=== PATIENT | male | born 2000 | race Caucasian/White ===

== ENCOUNTER 2023-06-13 14:58 | Outpatient (AMB) | payer OTHER, SELFPAY ==
--- NOTE | 2023-06-13 15:13 | A.OFFPC_ITS ---
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 He reports this has been ongoing the past couple years. He has not had this worked up before. -He notes he tries to avoid triggers, oc casionally uses tums. He reports this does happen most days. Swollen testicles PMHx: L wrist fracture SurgHx: None FHx: Mom: Depression. Dad: Healthy. SocHx: Vapes EtOH. No drugs. HPI Comments History of Present Illness Details Documentation assistance for Obinna Hinojosa MD, was provided by Rajinder Brasher,? Club Attendant on 06/13/2023 3:36 PM EST. I, Dr. Hinojosa, have read, observed, and verified documentation. [facility] Medical History (Updated 06/13/23 @ 15:47 by Rajinder Brasher) Fx. left wrist Chest pain Surgical History (Updated 06/13/23 @ 15:22 by Lissy Rausch CMA) No pertinent past surgical history Family History (Updated 06/13/23 @ 15:24 by Lissy Rausch CMA) Mother Substance abuse in family Mental health disorder Brother Mental health disorder Sister Mental health disorder Social History (Updated 06/13/23 @ 15:26 by Lissy Rausch CMA) Household Members: Significant Other Both parents involved: No Caregiver staying overnight: No Housing: Apartment Are you a primary hospice patient care secretary to a significant other at home: No Do you presently have visiting nurse or other home services: No 75 years or older and lives alone: No Alcohol intake: current Comment: on occasion Patient Tobacco Use Status: Never used Tobacco e-Cigarette/Vaping Use: Currently Using Special anthony needs: No service: Yes Current occupational status: employed 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 1. Little interest or pleasure in doing things: not at all 2. Feeling down, depressed, or hopeless: not at all 3. Trouble falling or staying asleep, or sleeping too much: not at all 4. Feeling tired or having little energy: not at all 5. Poor appetite or overeating: not at all 6. Feeling bad about yourself - or that you are a failure or have let yourself or your family down: not at all 7. Trouble concentrating on things, such as reading the newspaper or watching television: not at all 8. Moving or speaking so slowly that other people could have noticed. Or the opposite - being so fidgety or restless that you have been moving around a lot more than usual: not at all 9. Thoughts that you would be better off or of hurting yourself in some way: not at all Total score: 0 Source: Developed by Drs. Danilo Esqueda, Macy Dave, Robinson Driver and colleagues, with an educational vin from [employer]. Thrive Questionnaire Date Thrive assessed: 06/13/23 I am a: Patient What is your living situation today?: I have a steady place to live Within the past 12 months, did the food you bought not last and you didn't have the money to get more?: Never true Within the past 12 months, did you worry whether your food would run out before you got money to buy more?: Never true Do you have trouble paying for medicines?: No Do you have trouble getting transportation to medical appointments?: No Do you have trouble paying your heating and electricity bill?: No Do you have trouble taking care of your child, family member or friend?: No Do you have trouble with day-to-day activities such as bathing, preparing meals, shopping, managing finances, etc.?: No Are you currently unemployed and looking for a job?: No Are you interested in more education?: No AUDIT C Alcohol Use Questionnaire (AUDIT-C) 1. How often do you have a drink containing alcohol?: Monthly or less 2. How many drinks containing alcohol do you have on a typical day when you are drinking?: 3 or 4 3. How often do you have six or more drinks on one occasion?: Never Total Score: 2 ABELARDO-7 AMB Questionnaire BAELARDO-7 Date ABELARDO - 7 assessed: 06/13/23 Feeling nervous, anxious, or on edge: 0 = Not at all Not being able to stop or control worryin = Not at all Worrying too much about different things: 0 = Not at all Trouble relaxin = Not at all Being so restless that it is hard to sit still: 0 = Not at all Becoming easily annoyed or irritable: 0 = Not at all Feeling afraid as if something awful might happen: 0 = Not at all Total ABELARDO-7 score (0-4 normal; 5-9 mild; 10-14 moderate; 15-21 severe): 0 Source: Developed by Drs. Danilo Esqueda, Macy Dave, Robinson Driver and colleagues, with an educational vin from [employer]. Review of Systems Const Denies chills, Denies fatigue, Denies fever(s), Denies headache(s) and Denies weakness ENT Denies dizziness and Denies headache(s) Card Denies chest pain, Denies lightheadedness, Denies dyspnea and Denies other (Palpitations) Resp Denies cough, Denies dyspnea, Denies wheezing and Denies other ( shortness of breath) Musc Denies numbness and Denies tingling Neuro Denies dizziness, Denies headache(s), Denies numbness, Denies tingling, Denies paresthesias and Denies weakness Psych Denies anxiety and Denies depression Endo Denies fatigue Aller/Immun Denies wheezing Physical exam (Primary Care) BMI result Body Mass Index 20.6 Tobacco/Smoking Status: Tobacco use Status Tobacco use date assessed 06/13/23 06/13/23 15:21 Patient Tobacco Use Status Never used Tobacco 06/13/23 15:26 e-Cigarette/Vaping Use Currently Using 06/13/23 15:26 PHQ-9: PHQ-9 Score PHQ-9: Total score 0 06/13/23 15:27 Const General: no acute distress and well developed Nutritional Appearance: well nourished Orientation/consciousness: patient oriented x3 [facility] Head: Yes normocephalic and Yes atraumatic Eyes General: appearance normal, both eyes and all related structures Pupils: Equal, round and reactive pupils present EOM: EOMs intact bilaterally Resp Effort & Inspection: normal respiratory effort Auscultation: clear to auscultation bilaterally Cardio Rate: regular rate Rhythm: regular rhythm Heart sounds: S1 normal heart sound present, S2 normal heart sound present, no gallops, no murmurs and no rubs Neuro General: patient oriented x3 and gait normal Cranial nerves: Yes Equal, round and reactive pupils present Psych Affect: normal affect Office Procedures Flu Questionnaire Does the patient have a severe egg allergy?: No Does the patient have severe life threatening allergies?: No Does the patient have a fever or illness today?: No Has the patient ever had Guillain-Madison Syndrome?: No Has the patient ever had any past reaction to a flu shot?: No Immunizations flu vacc [id number] 6mos up(PF) 60 mcg(15 mcgx4)/0.5 mL IM syringe Performing Provider: Obinna Hinojosa MD Performing [facility] Documented (not given) by: Lissy Rausch TELEPHONE SEX WORKER on 06/13/23 15:36 Reason Not Given: Not Given Assessment and Plan Assessment & Plan (1) Acid reflux: Code(s): K21.9 - Gastro-esophageal reflux disease without esophagitis Plan: Acid?reflux?and?heartburn?with?symptoms?almost?daily Not?obese,?watch?his?trigger?foods,?no?anxiety. Check?H?pylori?stool?antigen?test Start?omeprazole (2) Swollen testicle: Code(s): N50.89 - Other specified disorders of the male genital organs Plan: Left?testicular discomfort/swelling?and?transient?mass?which?has?resolved. Sexually?active?in?a?monogamous?relationship No?discharge?and?no?dysuria. Mild?prominence?of?left?spermatic?cord Will?check?GC?and?chlamydia?as?well?as?other?STD?test. Check?scrotal?ultrasound Advised?good?supportive?garments?but?keep?cool May?need?referral?to?urology (3) Screening for STD (sexually transmitted disease): Code(s): Z11.3 - Encounter for screening for infections with a predominantly sexual mode of transmission Plan: Check?lab (4) Laboratory exam ordered as part of routine general medical examination: Code(s): Z00.00 - Encounter for general adult medical examination without abnormal findings Plan: Check?labs Orders: Orders Influenza [id number] Immunization Today Z23 - Encounter for immunization Lipid Panel Today Z00.00 - Encounter for general adult medical examination without abnormal findings Microalbumin, Random (w Creat) Today I10 - Essential (primary) hypertension UA and rflx microscopic Today Z00.00 - Encounter for general adult medical examination without abnormal findings CT NG by PCR Today Z11.3 - Encounter for screening for infections with a predominantly sexual mode of transmission Comprehensive [place]. Panel Fast Today Z00.00 - Encounter for general adult medical examination without abnormal findings TSH reflex Free T4 Today Z00.00 - Encounter for general adult medical examination without abnormal findings HIV Ab/Ag Today Z11.3 - Encounter for screening for infections with a predominantly sexual mode of transmission Hepatitis B,C Profile Today Z11.3 - Encounter for screening for infections with a predominantly sexual mode of transmission Syphilis Screen Today Z11.3 - Encounter for screening for infections with a predominantly sexual mode of transmission US scrotum Today N50.89 - Other specified disorders of the male genital organs H pylori Ag Stool Today K21.9 - Gastro-esophageal reflux disease without esophagitis Coding Level of Care Code New Pt Level 4 (56546) Diagnoses Acid reflux K21.9 Swollen testicle N50.89 Screening for STD (sexually transmitted disease) Z11.3 Laboratory exam ordered as part of routine general medical examination Z00.00
[2023-06-13 15:14] VITALS: BP 118/62; PULSE 108; O2SAT 96; BMI 20.6
== END 2023-06-13 15:53 | disposition home or self-care (01) ==
PROVIDERS: PCP Family Medicine; Visit Provider Family Medicine
DX: K21.9 Gastro-esophageal reflux disease without esophagitis (principal); N50.89 Other specified disorders of the male genital organs; Z11.3 Encounter for screening for infections with a predominantly sexual mode of transmission
CPT/HCPCS: 99204

== ENCOUNTER 2023-07-05 16:19 | Outpatient (REF) | payer OTHER, SELFPAY ==
--- NOTE | ~2023-07-05 | US_ITS ---
EXAMINATION: US SCROTUM CLINICAL INFORMATION: Other specified disorders of the male genital organs. COMPARISON: None available. TECHNIQUE: A sonogram of the scrotum was performed assessing stiles-scale appearance and color Doppler flow. Spectral Doppler analysis of the arterial and venous flow were performed in the testes bilaterally. FINDINGS: RIGHT: Right testicle measures 5.7 x 2.1 x 3.4 cm, volume 22 mL. No focal testicular parenchymal lesions are visualized. Spectral Doppler analysis of the arterial and venous flow is normal in the right testis. Right epididymal head is normal in size. No right hydrocele or varicocele is seen. Right epididymal Doppler flow is normal. LEFT: Left testicle measures 5.4 x 2.5 x 3.3 cm, volume 23 mL. No focal testicular parenchymal lesions are visualized. Spectral Doppler analysis of the arterial and venous flow is normal in the left testis. Left epididymal head is normal in size. No left hydrocele or varicocele is seen. Left epididymal Doppler flow is normal. US/US scrotum IMPRESSION: Normal scrotal ultrasound.
== END 2023-07-05 16:20 | disposition home or self-care (01) ==
LOC: HO.US 16:19
PROVIDERS: PCP Family Medicine; Visit Provider Family Medicine
DX: N50.89 Other specified disorders of the male genital organs (principal)
CPT/HCPCS: 76870

== ENCOUNTER 2023-08-15 08:25 | Outpatient (REF) | payer OTHER, SELFPAY ==
[2023-08-15 11:21] LABS: Appearance Urine Clear; Color Urine Yellow; Glucose Urine UA Negative (Negative); Leukocyte Esterase Urine Negative (Negative); Nitrite Urine Negative (Negative); Urine Blood Negative (Negative); Urine Ketones Negative (Negative); Urine Protein Negative (Neg-Trace)
[2023-08-15 11:36] LABS: Alanine Aminotransferase 14 U/L (0-40); Albumin Level 4.6 g/dL (3.5-5.0); Alkaline Phosphatase 61 U/L (39-117); Anion Gap 10 (12-20); Aspartate Amino Transferase 16 U/L (5-37); Bilirubin Total 0.6 mg/dL (0.0-1.0); Blood Urea Nitrogen 13 mg/dL (9-16); Calcium 9.4 mg/dL (8.4-10.2); Carbon Dioxide 29 mmol/L (22-29); Chloride 104 mmol/L (96-108); Cholesterol 174 mg/dL (<200); Estimated Glomerular Filt Rate > 60; Glucose Fasting 95 mg/dL (60-99); HDL Cholesterol 52 mg/dL (>40); LDL Cholesterol Calculated 104 mg/dL (<100); Potassium 3.8 mmol/L (3.3-5.1); Sodium 139 mmol/L (135-145); Total Protein 7.5 g/dL (6.5-8.0); Triglycerides 90 mg/dL (<150)
[2023-08-15 11:43] LABS: Syphilis Screen Nonreactive (Nonreactive)
[2023-08-15 11:46] LABS: HBS Num1 > 1000.00 mIU/mL (0-7.99); HBc Num1 0.11 S/CO (0.00-0.79); HBsAGNum1 0.52 S/CO (0.00-0.99); HIV AB/AG Nonreactive (Nonreactive); HIV Num 1 0.05 S/CO (0.00-0.99); Hepatitis B Core Antibody Nonreactive (Nonreactive); Hepatitis B Surface Antigen Negative (Negative); Microalbumin Urine < 5.0 mg/L; ~HepC Num1 0.07 S/CO (0.00-0.79); ~Hepatitis B Surface Antibody REACTIVE (Nonreactive); ~Hepatitis C Antibody Nonreactive (Nonreactive)
[2023-08-15 11:53] LABS: TSH reflex Free T4 2.14 uIU/mL (0.32-4.0)
== END 2023-08-15 08:26 | disposition home or self-care (01) ==
LOC: HO.WFDLDS 08:25
PROVIDERS: Visit Provider Family Medicine
DX: Z00.00 Encounter for general adult medical examination without abnormal findings (principal); I10 Essential (primary) hypertension; Z11.3 Encounter for screening for infections with a predominantly sexual mode of transmission
CPT/HCPCS: 36415; 80053; 80061; 81003; 82570; 84443; 86704; 86706; 86780; 86803; 87340; 87389

== ENCOUNTER 2023-09-07 15:50 | Outpatient (AMB) | payer OTHER, SELFPAY ==
--- NOTE | 2023-09-07 16:29 | A.OFFPC_ITS ---
Vital Signs 09/07/23 16:30 Height 5 ft 6.75 in Weight 135 lb BMI 21.3 BP 126/85 Blood Pressure Location Lt brachial Position Sitting Pulse 74 Pulse Source Pulse Oximeter Temp 98.9 F Temp Source Oral Pulse Oximetry (%) 98 Oxygen Delivery Method Room Air Intake Visit Reasons: Fatigue [phone] Intake Note: Patient is here with fatigue, feeling of tightness of shoulders, arm since yesterday, he states he had sweats last night, too. Patient states he called out of work today. Allergies No Known Allergies Allergy (Verified 06/13/23 15:18) Tobacco use date assessed: 06/13/23 HPI Fatigue [phone] HPI Details 22 y/o male presents today with complain ts of fatigue. Pt reports tightness of shoulders/arms since yesterday. He also reports sweats. [facility] Medical History (Updated 09/07/23 @ 17:16 by Rajinder Brasher) Fx. left wrist Chest pain Surgical History (Updated 06/13/23 @ 15:22 by Lissy Rausch CMA) No pertinent past surgical history Family History (Updated 06/13/23 @ 15:24 by Lissy Rausch CMA) Mother Substance abuse in family Mental health disorder Brother Mental health disorder Sister Mental health disorder Social History (Updated 06/13/23 @ 15:26 by Lissy Rausch CMA) Household Members: Significant Other Housing: Apartment Are you a primary animal care attendant to a significant other at home: No Do you presently have visiting nurse or other home services: No Alcohol intake: current Comment: on occasion Patient Tobacco Use Status: Never used Tobacco e-Cigarette/Vaping Use: Currently Using Special anthony needs: No service: Yes Current occupational status: employed 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 Danilo Esqueda, Macy Dave, Robinson Driver and colleagues, with an educational vin from [employer]. Review of Systems Const Reports fatigue, Denies headache(s) and Denies weakness ENT Denies dizziness and Denies headache(s) Card Denies chest pain, Denies lightheadedness, Denies dyspnea and Denies other (Palpitations) Resp Denies cough, Denies dyspnea, Denies wheezing and Denies other ( shortness of breath) Musc Denies numbness and Denies tingling Neuro Denies dizziness, Denies headache(s), Denies numbness, Denies tingling, Denies paresthesias and Denies weakness Psych Denies anxiety and Denies depression Endo Reports fatigue Aller/Immun Denies wheezing Physical exam (Primary Care) Vital Signs: Last Vital Signs Temp 98.9 F 09/07/23 16:30 Pulse 74 09/07/23 16:30 BP 126/85 09/07/23 16:30 Pulse Ox 98 09/07/23 16:30 Oxygen Delivery Method Room Air 09/07/23 16:30 BMI result Body Mass Index 21.3 Tobacco/Smoking Status: Tobacco use Status Tobacco use date assessed 06/13/23 09/07/23 16:38 Patient Tobacco Use Status Never used Tobacco 09/07/23 16:38 e-Cigarette/Vaping Use Currently Using 09/07/23 16:38 Thrive Assessment: Date of Thrive Assessment Date Thrive assessed 06/13/23 09/07/23 16:38 Const General: no acute distress and well developed Nutritional Appearance: well nourished Orientation/consciousness: patient oriented x3 [facility] Head: Yes normocephalic and Yes atraumatic Eyes General: appearance normal, both eyes and all related structures Pupils: Equal, round and reactive pupils present EOM: EOMs intact bilaterally Resp Effort & Inspection: normal respiratory effort Auscultation: clear to auscultation bilaterally Cardio Rate: regular rate and tachycardic Rhythm: regular rhythm Heart sounds: S1 normal heart sound present, S2 normal heart sound present, no gallops, no murmurs and no rubs Neuro General: patient oriented x3 and gait normal Cranial nerves: Yes Equal, round and reactive pupils present Psych Affect: normal affect Assessment and Plan Assessment & Plan (1) Viral illness: Code(s): B34.9 - Viral infection, unspecified Plan: Viral?illness There?is?no?antibiotic?medication ?for?viruses.??They?must?run?their?course.??Most?average?5-7?days?but?7-10?days? is?not?uncommon?and?up?to?14?days?is?still?possible.??A?cough?is?often?the?last? symptom?to?resolve?and?this?can?last?for?weeks?in?some?cases. Rest Hydrate?well?-??Drink?plenty?of?fluids.??Especially?water. Tylenol?or?ibuprofen?for?muscle?aches,?headache,?fever/discomfort Can?use?okbr-lml-tbmefvp?medications?for?cough?s uch?as?Delsym?or?DayQuil.??Prescription?cough?medicines?have?been?shown?to?be?no ?better. Send?nasal?swab?to?test?for?COVID/flu/RSV Will?give?him?a?note?to?be?out?until?Monday.??If?positive?for?the?a isabela?or?if?he?is?still not?feeling?well?we?can?extend?his?note. (2) Muscle fatigue: Code(s): M62.89 - Other specified disorders of muscle Plan: Hydrate?well Can?use?ibuprofen?and?Tylenol Rest Orders: Orders SARS-CoV2/FLU/RSV Today B34.9 - Viral infection, unspecified, Z20.822 - Contact with and (suspected) exposure to COVID-19 Coding Level of Care Code Est Pt Level 3 (05596) Diagnoses Viral illness B34.9 Muscle fatigue M62.89
[2023-09-07 16:30] VITALS: BP 126/85; PULSE 74; TEMP 37.2; O2SAT 98; BMI 21.3
== END 2023-09-07 17:00 ==
PROVIDERS: PCP Family Medicine; Visit Provider Family Medicine
DX: B34.9 Viral infection, unspecified (principal); M62.89 Other specified disorders of muscle
CPT/HCPCS: 99213

== ENCOUNTER 2023-09-07 17:24 | Outpatient (REF) | payer OTHER, SELFPAY ==
[2023-09-08 14:38] LABS: Influenza A PCR NEGATIVE (Negative); Influenza B PCR NEGATIVE (Negative); Resp Syncy Virus RNA Qual PCR NEGATIVE (Negative); SARS COV2 PCR INHOUSE NEGATIVE (Negative)
== END 2023-09-07 17:25 | disposition home or self-care (01) ==
LOC: HO.LAB 17:24
PROVIDERS: Visit Provider Family Medicine
DX: B34.9 Viral infection, unspecified (principal); Z20.822 Contact with and (suspected) exposure to COVID-19
CPT/HCPCS: 0241U

== ENCOUNTER 2023-09-19 11:45 | Outpatient (AMB) | payer OTHER, SELFPAY ==
[2023-09-19 12:09] VITALS: BP 116/70; PULSE 110; O2SAT 97; BMI 21.3
--- NOTE | 2023-09-19 12:09 | MHC.PC.OV ---
Vital Signs 09/19/23 12:09 Height 5 ft 6.5 in Weight 134 lb 2 oz BMI 21.3 BP 116/70 Blood Pressure Location Lt brachial Position Sitting Pulse 110 H Pulse Source Pulse Oximeter Pulse Oximetry (%) 97 Oxygen Delivery Method Room Air Intake Visit Reasons: CPE Intake Note: Patient is here today for his physical and to follow up on labs. Allergies No Known Allergies Allergy (Verified 09/19/23 12:11) Tobacco use date assessed: 09/19/23 HPI CPE HPI Details 22 y/o male presents for a CPE with f/u labs and health maintenance. Labs were drawn 08/15/23. Reviewed labs with pt. Triglycerides 90. TC 174. LDL 104. HDL 52. Pt reports ongoing issues with GERD. PFSH Medical History Fx. left wrist Chest pain Surgical History No pertinent past surgical history Family History Mother Substance abuse in family Mental health disorder Brother Mental health disorder Sister Mental health disorder Social History Household Members: Significant Other Both parents involved: No Caregiver staying overnight: No Housing: Apartment Are you a primary managed care provider to a significant other at home: No Do you presently have visiting nurse or other home services: No 75 years or older and lives alone: No Alcohol intake: current Comment: on occasion Patient Tobacco Use Status: Never used Tobacco e-Cigarette/Vaping Use: Currently Using Special anthony needs: No service: Yes Current occupational status: employed 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 Danilo Esqueda, Macy Dave, Robinson Driver and colleagues, with an educational vin from [employer]. Review of Systems Const Denies chills, Denies fatigue, Denies fever(s), Denies headache(s) and Denies weakness Eyes Denies change in vision ENT Denies dizziness, Denies headache(s), Denies hearing loss, Denies nasal congestion, Denies sinus pain, Denies sinus pressure and Denies sore throat Card Denies chest pain, Denies lightheadedness, Denies dyspnea and Denies other (palpitations) Resp Denies cough, Denies dyspnea and Denies wheezing GI Denies abdominal pain, Denies melena, Denies hematochezia, Denies change in bowel habits, Denies dyspepsia and Denies nausea Denies hematuria and Denies dysuria Musc Denies abnormal gait, Denies myalgias, Denies arthralgias, Denies numbness and Denies tingling Skin/Breast Denies rash, Denies unusual bruising and Denies wounds Neuro Denies abnormal gait, Denies dizziness, Denies headache(s), Denies memory loss, Denies numbness, Denies Sensory deficit (Neuro), Denies tingling and Denies weakness Psych Denies anxiety, Denies depression and Denies memory loss Endo Denies cold intolerance, Denies fatigue, Denies heat intolerance, Denies polydipsia and Denies polyuria Prudencio/Lymph Denies easy bleeding and Denies easy bruising Aller/Immun Denies wheezing Physical exam (Primary Care) Vital Signs: Last Vital Signs Pulse 110 H 09/19/23 12:09 BP 116/70 09/19/23 12:09 Pulse Ox 97 09/19/23 12:09 Oxygen Delivery Method Room Air 09/19/23 12:09 BMI result Body Mass Index 21.3 Tobacco/Smoking Status: Tobacco use Status Tobacco use date assessed 09/19/23 09/19/23 12:14 Patient Tobacco Use Status Never used Tobacco 09/19/23 12:10 e-Cigarette/Vaping Use Currently Using 09/19/23 12:10 Thrive Assessment: Date of Thrive Assessment Date Thrive assessed 06/13/23 09/19/23 12:10 Const General: no acute distress, well developed, alert and awake Nutritional Appearance: well nourished Orientation/consciousness: patient oriented x3 [facility] Head: Yes normocephalic and Yes atraumatic Ears: hearing grossly normal bilaterally and TM's normal bilaterally General nose exam: Normal external nose present and Normal nares present Mouth: Normal oral and palatal mucosa present and moist mucous membranes Teeth and gingiva: dentition normal Throat: Yes posterior oropharynx normal Eyes General: appearance normal, both eyes and all related structures Pupils: Equal, round and reactive pupils present and Pupil accommodation reflex normal EOM: EOMs intact bilaterally Neck Neck: Yes normal visual inspection, Yes no lymphadenopathy and Yes trachea midline Thyroid: Thyroid normal Carotids: no bruits Lymphatic: no lymphadenopathy noted Chest Chest palpation & inspection: normal inspection of the chest Resp Effort & Inspection: normal respiratory effort Auscultation: clear to auscultation bilaterally Cardio Rate: regular rate Rhythm: regular rhythm Heart sounds: S1 normal heart sound present, S2 normal heart sound present, no gallops, no murmurs and no rubs Bruits: no abdominal aortic bruits and no carotid bruits GI Palpation (GI): No Abdominal aortic bruit present, Soft to palpation, nontender, No hepatosplenomegaly present and No Rebound tenderness present Auscultation: normal bowel sounds General: Yes no CVA tenderness Back/Spine/Pelvis Back: no CVA tenderness Cervical Spine: cervical ROM normal and No Cervical spine tenderness Thoracic/Lumbar Spine: thoraco-lumbar ROM normal, No pain with thoraco-lumbar ROM, No thoracic spinal tenderness and No lumbar spinal tenderness Skin Lesions: no lesions Rashes: no rashes Trauma: no lacerations or abrasions Wounds: no wounds Nails: normal Neuro General: patient oriented x3 Cranial nerves: Yes Equal, round and reactive pupils present Cognition (Neuro): normal cognition Gait exam (Neuro): Normal gait present Motor exam (neuro): 5/5 motor strength present throughout Sensory Exam: No Sensory deficit (Neuro) Deep tendon reflexes (DTR's): Right patellar reflex intensity grade: 2+ and Left patellar reflex intensity grade: 2+ Extrem General: Yes normal to inspection and No edema Psych Appearance: grossly normal Affect: normal affect Attitude: cooperative Thought process: Normal thought process present Assessment and Plan Assessment & Plan (1) Adult general medical exam: Code(s): Z00.00 - Encounter for general adult medical examination without abnormal findings Plan: 22-year-old?male?presents?for?complete?physical?exam Encouraged?healthy?diet?with?active?lifestyle?and?plenty?of?exercise (2) Acid reflux: Code(s): K21.9 - Gastro-esophageal reflux disease without esophagitis Plan: Had?ordered?H?pylori?test?but?he?has?not?had?this?done?yet. He?will?trial?omeprazole?but?he?agrees?to?get?H?pylori?testing?done Will?follow-up?in?a?couple?of?months Medications: New omeprazole 20 mg PO DAILY 30 caps 3RF 30 days Coding Level of Care Code Est Pt Level 3 (14580) Est Pt Prev Care 18-39y(56709) Diagnoses Adult general medical exam Z00.00 Acid reflux K21.9
== END 2023-09-19 13:03 | disposition home or self-care (01) ==
PROVIDERS: PCP Family Medicine; Visit Provider Family Medicine
DX: Z00.00 Encounter for general adult medical examination without abnormal findings (principal); K21.9 Gastro-esophageal reflux disease without esophagitis
CPT/HCPCS: 99213; 99395

== ENCOUNTER 2024-01-15 10:19 | Outpatient (REF) | payer OTHER, SELFPAY | END 2024-01-15 10:20 | disposition home or self-care (01) | LOC: HO.LNP 10:19 | PROVIDERS: Visit Provider Family Medicine | DX: K21.9 Gastro-esophageal reflux disease without esophagitis (principal) | CPT/HCPCS: 87338 ==

== ENCOUNTER 2024-02-09 09:16 | Outpatient (AMB) | payer OTHER, SELFPAY ==
[2024-02-09 09:22] VITALS: BP 110/68; PULSE 83; O2SAT 99; BMI 19.0
--- NOTE | 2024-02-09 09:22 | MHC.PC.OV ---
Vital Signs 02/09/24 09:22 Height 5 ft 6.75 in Weight 120 lb 4 oz BMI 19.0 BP 110/68 Blood Pressure Location Rt brachial Position Sitting Pulse 83 Pulse Source Pulse Oximeter Pulse Oximetry (%) 99 Oxygen Delivery Method Room Air Intake Visit Reasons: f/u GERD Intake Note: Vinay is a 23 year old male who presents to the office today for a follow up for GERD. Pt states he thinks the medication is helping but states sometimes he feels like his heart is racing. Allergies No Known Allergies Allergy (Verified 02/09/24 09:22) Medication List - Last Reconciled 02/09/24 by Obinna Hinojosa MD pantoprazole 20 mg PO DAILY 30 days Tobacco use date assessed: 02/09/24 Dental Screening Dental Screen Date: 02/09/24 Did you have a dental visit in the last 12 months?: Yes Did you have a dental problem in the last 6 months where you did not have access to dental care?: No Was dental information given to patient?: Patient has dentist HPI f/u GERD HPI Details 23 y/o male presents to f/u GERD. He is on omeprazole 20mg - he notes this did help with the reflux but noted palpitations when taking it. Pt reports L-sided chest pain, some pain with exertion. [facility] Medical History Fx. left wrist Chest pain Surgical History No pertinent past surgical history Family History Mother Substance abuse in family Mental health disorder Brother Mental health disorder Sister Mental health disorder Social History Household Members: Significant Other Both parents involved: No Caregiver staying overnight: No Housing: Apartment Are you a primary healthcare translator to a significant other at home: No Do you presently have visiting nurse or other home services: No 75 years or older and lives alone: No Alcohol intake: current Comment: on occasion Patient Tobacco Use Status: Never used Tobacco e-Cigarette/Vaping Use: Currently Using Special anthony needs: No service: Yes Current occupational status: employed 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 1. Little interest or pleasure in doing things: not at all 2. Feeling down, depressed, or hopeless: not at all 3. Trouble falling or staying asleep, or sleeping too much: not at all 4. Feeling tired or having little energy: not at all 5. Poor appetite or overeating: not at all 6. Feeling bad about yourself - or that you are a failure or have let yourself or your family down: not at all 7. Trouble concentrating on things, such as reading the newspaper or watching television: not at all 8. Moving or speaking so slowly that other people could have noticed. Or the opposite - being so fidgety or restless that you have been moving around a lot more than usual: not at all 9. Thoughts that you would be better off or of hurting yourself in some way: not at all Total score: 0 Source: Developed by Drs. Danilo Esqueda, Macy Dave, Robinson Driver and colleagues, with an educational vin from [employer]. Thrive Questionnaire Date Thrive assessed: 02/09/24 I am a: Patient What is your living situation today?: I have a steady place to live Within the past 12 months, did the food you bought not last and you didn't have the money to get more?: Never true Within the past 12 months, did you worry whether your food would run out before you got money to buy more?: Never true Do you have trouble paying for medicines?: No Do you have trouble getting transportation to medical appointments?: No Do you have trouble paying your heating and electricity bill?: No Do you have trouble taking care of your child, family member or friend?: No Do you have trouble with day-to-day activities such as bathing, preparing meals, shopping, managing finances, etc.?: No Are you currently unemployed and looking for a job?: No Are you interested in more education?: No THRIVE Score: 0 AUDIT C Alcohol Use Questionnaire (AUDIT-C) 1. How often do you have a drink containing alcohol?: Monthly or less 2. How many drinks containing alcohol do you have on a typical day when you are drinking?: 3 or 4 3. How often do you have six or more drinks on one occasion?: Never Total Score: 2 ABELARDO-7 AMB Questionnaire ABELARDO-7 Date ABELARDO - 7 assessed: 02/09/24 Feeling nervous, anxious, or on edge: 0 = Not at all Not being able to stop or control worryin = Not at all Worrying too much about different things: 0 = Not at all Trouble relaxin = Not at all Being so restless that it is hard to sit still: 0 = Not at all Becoming easily annoyed or irritable: 0 = Not at all Feeling afraid as if something awful might happen: 0 = Not at all Total ABELARDO-7 score (0-4 normal; 5-9 mild; 10-14 moderate; 15-21 severe): 0 Source: Developed by Drs. Danilo Esqueda, Macy Dave, Robinson Driver and colleagues, with an educational vin from [employer]. Review of Systems Const Denies chills, Denies fatigue, Denies fever(s), Denies headache(s) and Denies weakness ENT Denies dizziness and Denies headache(s) Card Denies dyspnea Resp Denies cough, Denies dyspnea, Denies wheezing and Denies other (shortness of breath) Musc Denies numbness and Denies tingling Neuro Denies dizziness, Denies headache(s), Denies numbness, Denies tingling and Denies weakness Psych Denies anxiety and Denies depression Endo Denies fatigue Aller/Immun Denies wheezing Physical exam (Primary Care) Vital Signs: Last Vital Signs Pulse 83 02/09/24 09:22 BP 110/68 02/09/24 09:22 Pulse Ox 99 02/09/24 09:22 Oxygen Delivery Method Room Air 02/09/24 09:22 BMI result Body Mass Index 19.0 Tobacco/Smoking Status: Tobacco use Status Tobacco use date assessed 02/09/24 02/09/24 09:24 Patient Tobacco Use Status Never used Tobacco 02/09/24 09:24 e-Cigarette/Vaping Use Currently Using 02/09/24 09:24 PHQ-9: PHQ-9 Score PHQ-9: Total score 0 02/09/24 10:21 Thrive Assessment: Date of Thrive Assessment Date Thrive assessed 02/09/24 02/09/24 09:36 Const General: well developed; No acute distress Nutritional Appearance: well nourished Orientation/consciousness: patient oriented x3 HENMT Head: Yes normocephalic and Yes atraumatic Eyes General: appearance normal, both eyes and all related structures Pupils: Equal, round and reactive pupils present EOM: EOMs intact bilaterally Resp Effort & Inspection: normal respiratory effort Neuro General: patient oriented x3 and gait normal Cranial nerves: Yes Equal, round and reactive pupils present Psych Affect: normal affect Assessment and Plan Assessment & Plan (1) Acid reflux: Code(s): K21.9 - Gastro-esophageal reflux disease without esophagitis Plan: Ongoing?acid?reflux?and?heartburn. H?pylori?test?was?negative He?has?had?adverse?effects?with?omeprazole. Will?switch?to?pantoprazole Still?has?ongoing?symptoms?when?he?stops?the?medication.??Will?refer?to?GI (2) Chest pain: Code(s): R07.9 - Chest pain, unspecified Plan: Left-sided?chest?pain?which?does?not?radiate. He?notes?that?it?does?change?with?exertion/activity EKG:??Mild?bradycardia, normal?axis,?normal?intervals,?no?hypertrophy,?no?ST-T-wave?changes Atypical?chest?pain.??No?intervention?required. Reassured?patient. Orders: Orders UA and rflx microscopic Today K21.9 - Gastro-esophageal reflux disease without esophagitis, Z00.00 - Encounter for general adult medical examination without abnormal findings AMB EKG-In Office Today R07.9 - Chest pain, unspecified Comprehensive [place]. Panel Fast Today K21.9 - Gastro-esophageal reflux disease without esophagitis, Z00.00 - Encounter for general adult medical examination without abnormal findings Lipid Panel Today K21.9 - Gastro-esophageal reflux disease without esophagitis, Z00.00 - Encounter for general adult medical examination without abnormal findings Microalbumin, Random (w Creat) Today I10 - Essential (primary) hypertension, K21.9 - Gastro-esophageal reflux disease without esophagitis TSH reflex Free T4 Today K21.9 - Gastro-esophageal reflux disease without esophagitis, Z00.00 - Encounter for general adult medical examination without abnormal findings Referrals Gastroenterology Referral K21.9 - Gastro-esophageal reflux disease without esophagitis Medications: New pantoprazole 20 mg PO DAILY 30 days 30 tabs 2RF K21.9 - Gastro-esophageal reflux disease without esophagitis Discontinued omeprazole Discontinued Reason: Doctor's Order 20 mg PO DAILY 30 days 30 caps 1RF Coding Level of Care Code Est Pt Level 3 (39385) Diagnoses Acid reflux K21.9 Chest pain R07.9
== END 2024-02-09 10:41 | disposition home or self-care (01) ==
PROVIDERS: PCP Family Medicine; Visit Provider Family Medicine
DX: K21.9 Gastro-esophageal reflux disease without esophagitis (principal); R07.9 Chest pain, unspecified
CPT/HCPCS: 99213

== ENCOUNTER 2024-05-17 13:54 | Outpatient (AMB) | payer OTHER, SELFPAY ==
[2024-05-17 14:03] VITALS: BP 141/85; PULSE 118; BMI 18.6
--- NOTE | 2024-05-17 14:03 | A.OFFVIS_ITS ---
Vital Signs 05/17/24 14:03 Height 5 ft 6.5 in Weight 116 lb 13.52 oz BMI 18.6 BP 141/85 H Blood Pressure Location Lt brachial Position Sitting Pulse 118 H Intake Visit Reasons: Gastroesophageal reflux disease (GERD) Intake Note: Vinay presents in the office as a new patient for GERD. CC: He states that when he eats certain food he will have GERD. He is dealing with weight loss at the moment. When he eats greasy foods he will have diarrhea. Driver/Refuse Collector Required: No Allergies No Known Allergies Allergy (Verified 05/17/24 14:04) HPI Comments Details: 23 y.o M who is here for L sided abd pain. Reports a year long symptomatology which he describes as increased belching with burning abd pain dayton with certain foods. Not assoc with nausea, vomiting. Sometimes get diarrhea after fatty food. Due to these sx has been avoiding fatty foods, and also avoiding etOH. With this has also noticed weight loss of around 10 lbs in this time. Used to vape which he has replaced nicotine pouches. No fam hx of IBD or CRC. Work up so far eith normal LFTs and neg H Pylori. Started on PPI but doesnt notice any remarkable response. [facility] Medical History (Updated 05/17/24 @ 15:36 by Sunshine Dinh MD) Fx. left wrist Chest pain Surgical History No pertinent past surgical history Family History Mother Substance abuse in family Mental health disorder Brother Mental health disorder Sister Mental health disorder Social History Household Members: Significant Other Both parents involved: No Caregiver staying overnight: No Housing: Apartment Are you a primary child caregiver private home to a significant other at home: No Do you presently have visiting nurse or other home services: No 75 years or older and lives alone: No Alcohol intake: current Comment: on occasion Patient Tobacco Use Status: Never used Tobacco e-Cigarette/Vaping Use: Currently Using Special anthony needs: No service: Yes Current occupational status: employed 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 [employer] Cognitive needs: No Hearing needs: No Vision needs: Yes (Patient wears both contacts and glasses.) Review of Systems Const All systems reviewed & are unremarkable except as noted in HPI and below Physical Exam Vital Signs: Last Vital Signs Pulse 118 H 05/17/24 14:03 BP 141/85 H 05/17/24 14:03 BMI result Body Mass Index 18.6 No apparent distress Nonicteric Abdomen soft, nondistended Alert and oriented x3, normal gait Assessment & Plan Assessment & Plan (1) Left upper quadrant abdominal pain: Code(s): R10.12 - Left upper quadrant pain Category: Medical (2) Intermittent diarrhea: Code(s): R19.7 - Diarrhea, unspecified Category: Medical (3) Weight loss: Code(s): R63.4 - Abnormal weight loss Category: Medical Plan DDx include GERD, gastritis, delayed gastric emptying, malabsorption, IBD, thyrotoxicosis. Suspect weight loss is 2ndary to dietary changes but advised pt to keep a tally of caloric intake. Plan: - CBC, TSH, fecal calpro, stool fat and celiac serology - US Abd - UGIS - Close follow up in 3 weeks to discuss results and review indication of endoscopy Orders: Orders Complete Blood Count no Diff Today R10.12 - Left upper quadrant pain Transglutaminase IgA Today R10.12 - Left upper quadrant pain Immunoglobulin A Today R10.12 - Left upper quadrant pain US abdomen complete Today R10.12 - Left upper quadrant pain FL upper GI w Ba Swallow Today R10.12 - Left upper quadrant pain Fecal Fat Qualitative Today R10.12 - Left upper quadrant pain TSH reflex Free T4 Today R10.12 - Left upper quadrant pain Calprotectin, Fecal Today R10.12 - Left upper quadrant pain Coding Level of Care Code New Pt Level 4 (84391) Complex EM visit Add On G2211 Diagnoses Left upper quadrant abdominal pain R10.12 Intermittent diarrhea R19.7 Weight loss R63.4
== END 2024-05-17 14:41 | disposition home or self-care (01) ==
LOC: HO.HGI 13:55
PROVIDERS: PCP Family Medicine; Visit Provider Internal Medicine
DX: R10.12 Left upper quadrant pain (principal); R19.7 Diarrhea, unspecified; R63.4 Abnormal weight loss
CPT/HCPCS: 99204; G2211

== ENCOUNTER → 2024-05-17 13:54 | Outpatient (BNVA) | payer OTHER, SELFPAY | PROVIDERS: PCP Family Medicine; Visit Provider Internal Medicine | DX: R63.4 Abnormal weight loss (principal); K21.9 Gastro-esophageal reflux disease without esophagitis; R10.12 Left upper quadrant pain; R19.7 Diarrhea, unspecified | CPT/HCPCS: 99202 ==

== ENCOUNTER 2024-05-24 07:47 | Outpatient (REF) | payer OTHER, SELFPAY ==
[2024-05-24 11:49] LABS: Hematocrit 45.7 % (42.0-52.0); Hemoglobin 15.4 g/dl (14.0-18.0); Mean Corpuscular HGB Conc 33.7 g/dl (31.0-36.0); Mean Corpuscular Hemoglobin 30.7 pg (27.0-33.0); Mean Corpuscular Volume 91.2 fL (80.0-98.0); Mean Platelet Volume 9.4 fL (9.4-12.4); Platelet Count 237 X10*3/uL (160-400); Red Blood Count 5.01 X10*6/uL (4.60-5.80); Red Cell Distribution Width 11.7 % (11.0-16.0); White Blood Count 4.9 X10*3/uL (4.8-10.8)
[2024-05-24 12:28] LABS: TSH reflex Free T4 1.13 uIU/mL (0.32-4.0)
[2024-05-27 08:03] LABS: Immunoglobulin A 188 mg/dL (47-310)
[2024-05-27 17:23] LABS: Transglutaminase IgA <1.0 U/mL
[2024-05-29 17:04] LABS: Fecal Fat Qualitative Normal (Normal)
[2024-06-01 03:19] LABS: Calprotectin, Fecal 43 mcg/g
== END 2024-05-24 07:48 | disposition home or self-care (01) ==
LOC: HO.WFDLDS 07:47
PROVIDERS: Visit Provider Internal Medicine
DX: R10.12 Left upper quadrant pain (principal)
CPT/HCPCS: 36415; 82705; 82784; 83993; 84443; 85027; 86364

== ENCOUNTER 2024-06-04 08:51 | Outpatient (REF) | payer OTHER, SELFPAY | END 2024-06-04 08:52 | disposition home or self-care (01) | LOC: HO.US 08:51 | PROVIDERS: PCP Family Medicine; Visit Provider Internal Medicine | DX: R10.12 Left upper quadrant pain (principal) | CPT/HCPCS: 76700 ==

== ENCOUNTER 2024-06-07 11:20 | Outpatient (AMB) | payer OTHER, SELFPAY ==
--- NOTE | 2024-06-07 11:20 | MHC.OFFVIS ---
Intake Visit Reasons: 3 week FUV discuss lab results Intake Note: Vinay presents as a telehealth today to go over results to lab work - he is not hazving any concerns at this time. Allergies No Known Allergies Allergy (Verified 05/17/24 14:04) HPI Comments Details: 23 y.o M who is here for L sided abd pain. Reports a year long symptomatology which he describes as increased belching with burning abd pain dayton with certain foods. Not assoc with nausea, vomiting. Sometimes get diarrhea after fatty food. Due to these sx has been avoiding fatty foods, and also avoiding etOH. With this has also noticed weight loss of around 10 lbs in this time. Used to vape which he has replaced nicotine pouches. No fam hx of IBD or CRC. Work up so far eith normal LFTs and neg H Pylori. Started on PPI but doesnt notice any remarkable response. 06/07/24: Following up as a video visit. Reports feeling much better. Reports quitting nicotine pouches and since then has been eating better, no further burning abd pain and/or bloating. Has put on a couple of pounds since he was last seen. Of note - pt mentions that her 29 y.o sister was diagnosed with multiple polyps and has been recommended to start early CRC screenign. [facility] Medical History Fx. left wrist Chest pain Surgical History No pertinent past surgical history Family History Mother Substance abuse in family Mental health disorder Brother Mental health disorder Sister Mental health disorder Social History Household Members: Significant Other Both parents involved: No Caregiver staying overnight: No Housing: Apartment Are you a primary anesthesiologist and critical care to a significant other at home: No Do you presently have visiting nurse or other home services: No 75 years or older and lives alone: No Alcohol intake: current Comment: on occasion Patient Tobacco Use Status: Never used Tobacco e-Cigarette/Vaping Use: Currently Using Special anthony needs: No service: Yes Current occupational status: employed 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 [employer] Cognitive needs: No Hearing needs: No Vision needs: Yes (Patient wears both contacts and glasses.) Review of Systems Const All systems reviewed & are unremarkable except as noted in HPI and below Physical Exam video visit Young male NAD SPeaking in complete sentences Telehealth Telehealth Telehealth Platform: [employer] Location of provider rendering services: practice address Location of patient: address on file Patient Identification confirmed using: Name, : Yes Telehealth method: video Patient verbally consented to treatment: Yes Patient verbally consented to billing insurance company: Yes Patient informed of any privacy concerns related to visit: Yes Minutes spent on Phone/Video with Pt.: 15 Assessment & Plan Assessment & Plan (1) Weight loss: Code(s): R63.4 - Abnormal weight loss Category: Medical (2) Intermittent diarrhea: Code(s): R19.7 - Diarrhea, unspecified Category: Medical (3) Left upper quadrant abdominal pain: Code(s): R10.12 - Left upper quadrant pain Category: Medical (4) Family history of colonic polyps: Code(s): Z83.719 - Family history of colon polyps, unspecified Category: Medical Plan Upper GI sx have completely resolved. Appetite back to normal. Will follow results of US Abd (done 06/04 report pending) and review resutls over the portal. In terms of hx of polyps in sibling (age 29), will book him for a colo for screening as high risk. PEG prep discussed. Instructions sent over the portal. Follow up after colo. Medications: New peg 3350-electrolytes 236-22.74-6.74 -5.86 gram (Golytely) as per split prep instructions, until fecal effluent is clear 240 mL PO Q10M 4,000 mL 0RF colonoscopy Coding Level of Care Code Tele Est Pt Level 4 (09583) Diagnoses Weight loss R63.4 Intermittent diarrhea R19.7 Left upper quadrant abdominal pain R10.12 Family history of colonic polyps Z83.719
== END 2024-06-07 12:36 | disposition home or self-care (01) ==
LOC: HO.HGI 11:20
PROVIDERS: PCP Family Medicine; Referring Provider Family Medicine; Visit Provider Internal Medicine
DX: R63.4 Abnormal weight loss (principal); R19.7 Diarrhea, unspecified; R10.12 Left upper quadrant pain; Z83.719 Family history of colon polyps, unspecified
CPT/HCPCS: 99214

== ENCOUNTER 2024-09-24 14:42 | Outpatient (AMB) | payer OTHER, SELFPAY ==
--- NOTE | 2024-09-24 14:56 | A.OFFPC_ITS ---
Vital Signs 09/24/24 15:01 Height 5 ft 6.5 in Weight 124 lb BMI 19.7 BP 134/70 Blood Pressure Location Lt brachial Position Sitting Respiration 12 Pulse 117 H Pulse Source Pulse Oximeter Pulse Oximetry (%) 97 Oxygen Delivery Method Room Air Intake Visit Reasons: CPE with f/u labs Dr. Little pt. 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 GI: Has history of dyspepsia, intermittent diarrhea. Saw GI-plans for colonoscopy given issues but more so family history of polyps. Finds it difficult to gain weight. No blood in the stool. Reports frequent urination. Feels frequent urge to go. Has family history of prostate cancer. says he believes he has had a hemorrhoid. He would like to see dermatology given multiple nevi ROS see HPI PHYSICAL EXAM: GENERAL: Alert and oriented x 3. NAD EYES: EOMI. Anicteric. HENT: Moist mucous membranes. No scleral icterus. No cervical lymphadenopathy. LUNGS: Clear to auscultation bilaterally. CARDIOVASCULAR: Regular rate and rhythm. No murmur. No JVD. ABDOMEN: Soft, non-tender +bs : Normal penis, testes, no external hemorroids. Prostate is smooth perhaps mild enlargement. non tender EXTREMITIES: No edema. Non-tender. SKIN: No rashes or lesions. Warm. NEUROLOGIC: No focal neurological deficits. CN II-XII grossly intact PSYCHIATRIC: Cooperative. Appropriate mood and affect [facility] Medical History Fx. left wrist Chest pain Surgical History No pertinent past surgical history Family History Mother Substance abuse in family Mental health disorder Brother Mental health disorder Sister Mental health disorder Social History Household Members: Significant Other Housing: Apartment Are you a primary body care manager to a significant other at home: No Do you presently have visiting nurse or other home services: No Alcohol intake: current Comment: on occasion Patient Tobacco Use Status: Never used Tobacco e-Cigarette/Vaping Use: Currently Using Special anthony needs: No service: Yes Current occupational status: employed 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 1. Little interest or pleasure in doing things: not at all 2. Feeling down, depressed, or hopeless: not at all 3. Trouble falling or staying asleep, or sleeping too much: not at all 4. Feeling tired or having little energy: not at all 5. Poor appetite or overeating: not at all 6. Feeling bad about yourself - or that you are a failure or have let yourself or your family down: not at all 7. Trouble concentrating on things, such as reading the newspaper or watching television: not at all 8. Moving or speaking so slowly that other people could have noticed. Or the opposite - being so fidgety or restless that you have been moving around a lot more than usual: not at all 9. Thoughts that you would be better off or of hurting yourself in some way: not at all Total score: 0 Depression Screening Interpretation: Negative Depression Screening Done: Yes 70847 - PHQ-9 Billing: Yes Source: Developed by Drs. Danilo Esqueda, Macy Dave, Robinson Driver and colleagues, with an educational vin from [employer]. Thrive Questionnaire Date Thrive assessed: 02/09/24 I am a: Patient What is your living situation today?: I have a steady place to live Within the past 12 months, did the food you bought not last and you didn't have the money to get more?: Never true Within the past 12 months, did you worry whether your food would run out before you got money to buy more?: Never true Do you have trouble paying for medicines?: No Do you have trouble getting transportation to medical appointments?: No Do you have trouble paying your heating and electricity bill?: No Do you have trouble taking care of your child, family member or friend?: No Do you have trouble with day-to-day activities such as bathing, preparing meals, shopping, managing finances, etc.?: No Are you currently unemployed and looking for a job?: No Are you interested in more education?: No Please select the resources that you would like help with: None Currently or been in a relationship where the following occur: No concerns reported THRIVE Score: 0 AUDIT C Alcohol Use Questionnaire (AUDIT-C) 1. How often do you have a drink containing alcohol?: Monthly or less 2. How many drinks containing alcohol do you have on a typical day when you are drinking?: 1 or 2 3. How often do you have six or more drinks on one occasion?: Never Total Score: 1 ABELARDO-7 AMB Questionnaire ABELARDO-7 Date ABELARDO - 7 assessed: 02/09/24 Feeling nervous, anxious, or on edge: 0 = Not at all Not being able to stop or control worryin = Not at all Worrying too much about different things: 0 = Not at all Trouble relaxin = Not at all Being so restless that it is hard to sit still: 0 = Not at all Becoming easily annoyed or irritable: 0 = Not at all Feeling afraid as if something awful might happen: 0 = Not at all Total ABELARDO-7 score (0-4 normal; 5-9 mild; 10-14 moderate; 15-21 severe): 0 Source: Developed by Drs. Danilo Esqueda, Macy Dave, Robinson Dirver and colleagues, with an educational vin from [employer]. Physical exam (Primary Care) Vital Signs: Last Vital Signs Pulse 117 H 09/24/24 15:01 Resp 12 09/24/24 15:01 BP 134/70 09/24/24 15:01 Pulse Ox 97 09/24/24 15:01 Oxygen Delivery Method Room Air 09/24/24 15:01 BMI result Body Mass Index 19.7 Tobacco/Smoking Status: Tobacco use Status Tobacco use date assessed 09/24/24 09/24/24 15:03 Patient Tobacco Use Status Never used Tobacco 09/24/24 15:01 e-Cigarette/Vaping Use Currently Using 09/24/24 15:01 PHQ-9: PHQ-9 Score PHQ-9: Total score 0 09/28/24 11:36 Depression Screening Interpretation: Negative Thrive Assessment: Date of Thrive Assessment Date Thrive assessed 02/09/24 09/24/24 14:57 Currently or been in a relationship where the following occur: No concerns reported Coding Level of Care Code Est Pt Prev Care 18-39y([id number]) Diagnoses Adult general medical exam Z00.00 Intermittent diarrhea R19.7 Polyuria R35.89 Additional Codes PHQ-9 - 36219 - PHQ-9 Billing: Yes ([id number]) Assessment & Plan Assessment & Plan (1) Adult general medical exam: Code(s): Z00.00 - Encounter for general adult medical examination without abnormal findings Category: Medical Plan: 23 y/o for cpe. chronic medical conditions reviewed. interval history reviewed. preventive measures for age discussed (2) Intermittent diarrhea: Code(s): R19.7 - Diarrhea, unspecified Category: Medical Plan: continue gi follow up. stool h pylori. (3) Polyuria: Code(s): R35.89 - Other polyuria Category: Medical Plan: UA, labs referral urology Orders: Orders Comprehensive Met. Panel 09/24/24 Z13.220 - Encounter for screening for lipoid disorders, Z13.228 - Encounter for screening for other metabolic disorders US abdomen limited 2 Months K82.4 - Cholesterolosis of gallbladder UA CC w/rflx Micro + Cult 09/24/24 R35.89 - Other polyuria Hemoglobin A1c 09/24/24 R35.89 - Other polyuria Lipid Panel 09/24/24 Z13.220 - Encounter for screening for lipoid disorders, Z13.228 - Encounter for screening for other metabolic disorders H pylori Ag Stool 09/24/24 K21.9 - Gastro-esophageal reflux disease without esophagitis Prostate Specific Antigen 09/24/24 R35.89 - Other polyuria Testosterone, Free/Total 09/24/24 R35.89 - Other polyuria Referrals Dermatology Referral D22.9 - Melanocytic nevi, unspecified Urology Referral N52.9 - Male erectile dysfunction, unspecified, R35.89 - Other polyuria
[2024-09-24 15:01] VITALS: BP 134/70; PULSE 117; RESP 12; O2SAT 97; BMI 19.7
--- OUTSIDE RECORDS SUMMARY | 2024-09-24 18:02 | XMS_ITS | Continuity of Care Document ---
Author Name [facility] Organization [facility] Care Team Providers Care System Sales Consultant Name Role Phone [facility] Unavailable Unavailable Allergies, Adverse Reactions, Alerts Combined list of allergies from Department of Defense and Veterans Affairs facilities. It does not include entries that were removed or entered in error. Substance Category Reaction Severity Reaction type Status Date Reported Comments Source No Known Allergies Drug allergy (disorder) active 11/05/2019 [place] [address] Immunizations Combined list of available immunizations from the Department of Defense and Veterans Affairs facilities. Immunization Series Date Given Administered By Site Reaction Lot Number CVX Code Drug Hospice Director Status Comments Source influenza virus vaccine, inactivated 2023 ENE Alves victor hugo, right (delt oid) [id number] ProDeafirus, A [employer] complet ed influenza virus vaccine, inactivat ed 05/22/24 Given 8203R-1 04 MDG Influenza, injectable, Madin Ayleen Canine Kidney, quadrivalent with preservative 3 2020 [id number] Seqirus (SEQ) comple t ed Influenza , injectabl e, Madin [place] Canine Kidney, quadrival ent with preservat garry DoD SARS-COV-2 (COVID-19) vaccine, mRNA, spike protein, LNP, preservative free, 100 mcg or 50 mcg dose 2 2020 [id number] UpTapa CaseRails, Inc. (MOD) complet ed SARS-COV- 2 (COVID-19 ) vaccine, mRNA, spike protein, LNP, preservat garry free, 100 mcg or 50 mcg dose DoD SARS-COV-2 (COVID-19) vaccine, mRNA, spike protein, LNP, preservative free, 100 mcg or 50 mcg dose 1 2020 [id number] 207 UpTapa CaseRails[employer] Inc. (MOD) complet ed SARS-COV- 2 (COVID-19 ) vaccine, mRNA, spike protein, LNP, preservat garry free, 100 mcg or 50 mcg dose DoD hepatitis A vaccine, adult dosage 3 2019 [id number] SmithKline (SKB) complet ed hepatitis A vaccine, adult dosage DoD Influenza, injectable, quadrivalent, preservative free 1 2019 [id number] 150 Seqirus (SEQ) complet ed Influenza , injectabl e, quadrival ent, preservat garry free DoD Hepatitis B vaccine (recombinant) , CpG adjuvanted 3 2019 [id number] 189 EME International. (DVX) complet ed Hepatitis B vaccine (recombin ant), CpG adjuvante d DoD hepatitis A-hepatitis B vaccine 2019 [id number] 104 GlaxoSmithKli ne complet ed hepatitis A-hepatit is B vaccine 12/19/19 Given Ambulat ory Pharmac y varicella virus vaccine 2019 [id number] 21 Merck & Company Inc complet ed varicella virus vaccine 12/19/19 Given Ambulat ory Pharmac y hepatitis A-hepatitis B vaccine 2019 zzLef t Arm [id number] 104 GlaxoSmithKli ne complet ed hepatitis A-hepatit is B vaccine 12/19/19 Given Ambulat ory Pharmac y varicella virus vaccine 2019 zzLef t Arm [id number] 21 Merck & Company Inc complet ed varicella virus vaccine 12/19/19 Given Ambulat ory Pharmac y varicella virus vaccine 2 2019 NAYAN CLEARY P [id number] 21 Merck (MSD) complet ed varicella virus vaccine DoD hepatitis A and hepatitis B vaccine 2 2019 TYRONE CLEARYA P [id number] 104 SmithKline (SKB) complet ed hepatitis A and hepatitis B vaccine DoD varicella virus vaccine 2019 [id number] 21 Merck & Company Inc complet ed varicella virus vaccine 11/12/19 Given Ambulat ory Pharmac y hepatitis A-hepatitis B vaccine 2019 [id number] 104 GlaxoSmithKli ne complet ed hepatitis A-hepatit is B vaccine 11/12/19 Given Ambulat ory Pharmac y hepatitis A-hepatitis B vaccine 2019 zzLef t Arm [id number] 104 GlaxoSmithKli ne complet ed hepatitis A-hepatit is B vaccine 11/12/19 Given Ambulat ory Pharmac y varicella virus vaccine 2019 zzLef t Arm [id number] 21 Merck & Company Inc complet ed varicella virus vaccine 11/12/19 Given Ambulat ory Pharmac y varicella virus vaccine 1 2019 DAVON MOE [id number] 21 Merck (MSD) complet ed varicella virus vaccine DoD hepatitis A and hepatitis B vaccine 1 2019 DAVON MOE [id number] 104 [employer] (SKB) complet ed hepatitis A and hepatitis B vaccine DoD measles virus vaccine 0 2019 05 () Not Given measles virus vaccine DoD rubella virus vaccine 0 2019 06 () Not Given rubella virus vaccine DoD mumps virus vaccine 0 2019 07 () Not Given mumps virus vaccine DoD adenovirus vaccine, live 2019 [id number] 8 143 Teva Pharmaceutica complet ed adenoviru s vaccine, live 10/31/19 Given Ambulat ory Pharmac y tetanus, diphtheria, acellular pertu is 2019 [id number] 115 Exo Protein BarsKli wa complet ed tetanus, diphtheri a, acellular pertussis 10/31/19 Given Ambulat ory Pharmac y meningococcal A,C,Y,W-135 (MCV4P) 2019 [id number] 114 sanofi pasteur complet ed meningoco ccal A,C,Y,W-1 35 (MCV4P) 10/31/19 Given Ambulat ory Pharmac y influenza, injectable, quadrivalent 2019 [id number] 913 158 Seqirus complet ed influenza , injectabl e, quadrival ent 10/31/19 Given Ambulat ory Pharmac y influenza, injectable, quadrivalent- pf 2019 [id number] 913 150 Seqirus complet ed influenza , injectabl e, quadrival ent-pf 10/31/19 Given Ambulat ory Pharmac y poliovirus vaccine, inactivated 2019 [id number] 10 sanofi pasteur complet ed polioviru s vaccine, inactivat ed 10/31/19 Given Ambulat ory Pharmac y meningococcal A,C,Y,W-135 (MCV4P) 2019 zzLef t Arm [id number] 114 sanofi pasteur complet ed meningoco ccal A,C,Y,W-1 35 (MCV4P) 10/31/19 Given Ambulat ory Pharmac y poliovirus vaccine, inactivated 2019 zzLef t Arm [id number] 10 sanofi pasteur complet ed polioviru s vaccine, inactivat ed 10/31/19 Given Ambulat ory Pharmac y influenza, injectable, quadrivalent 2019 zzLef t Arm [id number] 913 158 Seqirus complet ed influenza , injectabl e, quadrival ent 10/31/19 Given Ambulat ory Pharmac y adenovirus vaccine, live 2019 zzLef t Arm [id number] 8 143 Teva Pharmaceutica ls complet ed adenoviru s vaccine, live 10/31/19 Given Ambulat ory Pharmac y tetanus, diphtheria, acellular pertu is 2019 zzLef t Arm [id number] 115 [employer] wa complet ed tetanus, diphtheri a, acellular pertussis 10/31/19 Given Ambulat ory Pharmac y poliovirus vaccine, inactivated 1 2019 DAVON MOE [id number] 10 Sanofi Pasteur (PMC) complet ed polioviru s vaccine, inactivat ed DoD meningococcal polysaccharid e (groups A, C, Y and W-135) diphtheria toxoid conjugate vaccine (MCV4P) 1 2019 DAVON MOE [id number] 114 Sanofi Pasteur (PMC) complet ed meningoco ccal polysacch aride (groups A, C, Y and W-135) diphtheri a toxoid conjugate vaccine (MCV4P) DoD tetanus toxoid, reduced diphtheria toxoid, and acellular pertu is vaccine, adsorbed 1 2019 DAVON MOE [id number] 115 [facility] (SKB) complet ed tetanus toxoid, reduced diphtheri a toxoid, and acellular pertussis vaccine, adsorbed DoD Adenovirus, type 4 and type 7, live, oral 1 2019 DAVON MOE [id number] 8 143 [facility] (BRR) complet ed Adenoviru s, type 4 and type 7, live, oral DoD Influenza, injectable, quadrivalent, preservative free 1 2019 [id number] 913 150 Seqirus (SEQ) complet ed Influenza , injectabl e, quadrival ent, preservat garry free DoD influenza, injectable, quadrivalent, contains preservative 1 2019 DAVON MOE [id number] 913 158 Seqirus (SEQ) complet ed influenza , injectabl e, quadrival ent, contains preservat garry DoD Results Combined list of recent chemistry, hematology and other laboratory results from Department of Defense and Veterans Affairs, ranging from 15 months to all on record, depending upon the facility. Order Name Results Value Reference Range Date Interpretation Specimen Comments Source Infectiou s Disease HIV-1/O/2 Non-Reac tive 1 (09/29/23 11:17 AM) 09/28 N Interpretiv e Data: INTERPRETAT ION: This method is a screening procedure for the detection of HIV p24 Antigen and Antibodies to HIV-1, including Group O, and/or HIV-2. NON-REACTIV E: HIV-1 antigen and HIV-1 / HIV-2 antibodies were not detected. No laboratory evidence of HIV infection. A negative test result does not exclude the possibility of exposure to or infection with HIV. HIV antibodies and/or p24 antigen may be undetectabl e in some stages of the infection and in some clinical conditions. If acute HIV infection is suspected, consider submitting another specimen to a reference laboratory for HIV-1 RNA. SCREEN REACTIVE - CONFIRMATIO N TO FOLLOW: Possible presence of HIV-1antibo dies, HIV-2 antibodies and/or HIV-1 p24 antigen. Specimen will reflex to the confirmatio n testing that fulfills the Center for Disease Control and Prevention' s HIV diagnostic algorithm. Refer to [facility] Lab Guide for additional information : [email or web address]/ [email or web address] x Testing performed by [employer] marry solo. 5600A-U SAFS[facility] EPILAB Miscellan eous Sendouts Repository Sample Received (09/29/23 11:17 AM) 09/28 N 5600A-U SAFSAM EPILAB Encounters Combined list of: 1) Encounters from Department of Veterans Affairs facilities going backup to the last 18 months, not all VA inpatient encounters are included; 2) Encounters from the Department of Defense facilities going backup to 280 months. Location Location Details Encounter Type Encounter Number Reason For Visit Attending Provider ADM Date DC Date Status Disposition [place] [address](All ergy, [facility]) OUTPATIENT [id number] Notes Entered by: Kade MOE 31 Oct 2019 1420 ------- ------- ------- ------- -- tvc AARON BASSETT 10/30 [facility] [place] [address](A llergy, [facility]) [facility], [place] [address]([facility]) OUTPATIENT [id number] Notes Entered by: Eli SANTANA 04 Nov 2019 1301 ------- ------- ------- ------- -- Strep Prophyl axis JAMES SANTANA 11/03 Released w/o Limitations [facility] [place] [address]([facility] d) [facility], [place] [address](All ergy, [facility]) OUTPATIENT [id number] Notes Entered by: Kade MOE 12 Nov 2019 1135 ------- ------- ------- ------- -- tvc JAXON VERDUZCO 11/11 Released w/o Limitations [facility] [place] [address](A llergy, [facility]) [facility], [place] [address]([facility] BMT [facility]) OUTPATIENT [id number] BMT REED BRADLEY 11/13 Released w/o Limitations [facility] [place] [address](O ptometr y Clinic BMT [facility]) [facility], [place] [address](All ergy, [facility]) OUTPATIENT [id number] Notes Entered by: FRANKO YOUSIF MA 19 Dec 2019 1006 ------- ------- ------- ------- -- TVC AARON BASSETT 12/18 Released w/o Limitations [facility] [place] [address](A llergy, [facility]) [place] [address](AFN G [address]) OUTPATIENT [id number] Notes Entered by: MATTHEWBISHNUDEEPAKEDWIN YATES 04 Aug 2020 0818 ------- ------- ------- ------- -- CEASAR CASTRODEEPAK TRUDY 08/04 Released w/o Limitations [place] [address](A FNG [address]FM) [place] [address](AFN G [address]) OUTPATIENT [id number] Notes Entered by: LYNDON KWON 25 Sep 2020 1445 ------- ------- ------- ------- -- Annual Audiogr am MATTHEWDEEPAK TRUDY 09/25 Released w/o Limitations [place] [address](A FNG [address]FM) [place] [address](AFN G [address]) OUTPATIENT [id number] Notes Entered by: JENNIFER MCELROY 20 Sep 2021 0940 ------- ------- ------- ------- -- Annual Audiogr am / [email or web address] / PHAQ MATTHEWDEEPAK LOUIS TRUDY 09/20 Released w/o Limitations [facility] [place] [address](A FNG [address]FM) 8203R-104 G Between Visit [id number] 12/16 Discharge Disposition: Home or Self Care 8203R-1 04 ARCHIE 8203R-104 G Mass Vaccine [id number] 05/22 8203R-1 04 ARCHIE 8203R-104 G Between Visit [id number] 05/28 Discharge Disposition: Home or Self Care 8203R-1 04 G 8203R-104 G Between Visit [id number] 06/19 Discharge Disposition: Home or Self Care 8203R-1 04 MDG 8203R-104 MDG Preclinic [id number] 09/24 8203R-1 04 MDG Procedures Combined list of: 1) Procedures from Department of Veterans Affairs facilities going back up to thelast 18 months, not all VA non-surgical procedures are included; 2) All procedures from the Department of Defense facilities. Procedure Procedure Type Code Date Perfomer Comments Sourc e No data available for this section Ambulato ry Pharmacy PURE TONE AUDIOMETRY (THRESHOLD); AIR ONLY [facility] IMMUNIZATION ADMINISTRATION (INCLUDES PERCUTANEOUS, INTRADERMAL, SUBCUTANEOUS, OR INTRAMUSCULAR INJECTIONS); EACH ADDITIONAL VACCINE (SINGLE OR COMBINATION VACCINE/TOXOID) [facility] SCREENING TEST OF VISUAL ACUITY, QUANTITATIVE, BILATERAL DoD IMMUNIZATION ADMINISTRATION (INCLUDES PERCUTANEOUS, INTRADERMAL, SUBCUTANEOUS, OR INTRAMUSCULAR INJECTIONS); EACH ADDITIONAL VACCINE (SINGLE OR COMBINATION VACCINE/TOXOID) DoD THERAPEUTIC, PROPHYLACTIC, OR DIAGNOSTIC INJECTION (SPECIFY SUBSTANCE OR DRUG); SUBCUTANEOUS OR INTRAMUSCULAR DoD IMMUNIZATION ADMINISTRATION BY INTRANASAL OR ORAL ROUTE; 1 VACCINE (SINGLE OR COMBINATION VACCINE/TOXOID) [facility] Meningococcal Polysaccharide Diphtheria Toxoid Conjugate Vaccine Meningococcal Polysaccharide Diphtheria Toxoid Conjugate Vaccine 08422 DAVON MOE Meningococcal MCV4P (Menactra); Series #: 1; 0.5 mL; IM; Left Arm; g: OptoNovaofi Pasteur; Lot: [id number]; VIS given (Ginny: 02/28/2019). [facility] Vaccines Viral Polio, Inactivated Vaccines Viral Polio, Inactivated 01847 DAVON MOE IPV; Series #: 1; 0.5 mL; IM; Left Arm; Mfg: Sanofi Pasteur; Lot: [id number]; VIS given (Ginny: 05/15/19; 05/21/15 - Multiple). [facility] Tdap Vaccine Tdap Vaccine 42615 DAVON MOE Tdap; Series #: 1; 0.5 mL; IM; Left Arm; [facility]: [employer]; Lot: [id number]; VIS given (Ginny: 09/09/14). [facility] Vaccines Vaccines 87532 DAVON MOE Adenovirus Type 4 and 7; Series #: 1; 2 tablets; PO; Left Arm; Mfg: Helishopter; Lot: [id number]; VIS given (Ginny: 12/25/13). [facility] Influenza Split Virus Vaccine IM With Preservative Quadrivalent 0.50mL Dosage Influenza Split Virus Vaccine IM With Preservative Quadrivalent 0.50mL Dosage 94565 DAVON MOE Influenza, Inj., quad., contains preservative (Afluria); Series #: 1; 0.5 mL; IM; Left Arm; Mfg: Seqirus; Lot: [id number]; VIS given (Ginny: 02/28/2019). DoD Immunization Administration By Injection, One Vaccine Immunization Administration By Injection, One Vaccine [address] [facility] Immunization Administration By Injection, Each Additional Vaccine Immunization Administration By Injection, Each Additional Vaccine [address] [facility] Immunization Admin By Intranasal / Oral Route One Vaccine Immunization Admin By Intranasal / Oral Route One Vaccine 43131 DAVON MOE DoD Physician Supervised Injection Intramuscular Physician Supervised Injection Intramuscular [address] [facility] Vaccines Viral Varicella (Active) Vaccines Viral Varicella (Active) 50428 JEANNA MOEIsak PALMER Varicella; Series #: 1; 0.5 mL; SC; Left Arm; g: [employer]; Lot: [id number]; VIS given (Ginny: 02/28/2019). [facility] Hepatitis A And Hepatitis B (Intramuscular Use) Adult Dosage Hepatitis A And Hepatitis B (Intramuscular Use) Adult Dosage 56360 DAVON MOE SPENCER Hep A-Hep B (Twinrix); Series #: 1; 1.0 mL; IM; Left Arm; [facility]: Hi[employer]Lo Lodge; Lot: [id number]; VIS given (Ginny: 02/03/16 (hep A); 02/28/2019). [facility] Spectacles Services Fitting Monofocal Except For Aphakia Spectacles Services Fitting Monofocal Except For Aphakia [address] [facility] Screening Test Of Visual Acuity, Quantitative, Bilateral Screening Test Of Visual Acuity, Quantitative, Bilateral [address] [facility] Vaccines Viral Varicella (Active) Vaccines Viral Varicella (Active) 63921 GRANDBERRY, NAYAN P Varicella; Series #: 2; 0.5 mL; SC; Left Arm; Mfg: Merck; Lot: [id number]; VIS given (Ginny: 02/28/2019). [facility] Hepatitis A And Hepatitis B (Intramuscular Use) Adult Dosage Hepatitis A And Hepatitis B (Intramuscular Use) Adult Dosage 60757 NAYAN CLEARY Hep A-Hep B (Twinrix); Series #: 2; 1.0 mL; IM; Left Arm; Mfg: [employer] Lodge; Lot: [id number]; VIS given (Ginny: 02/03/16 (hep A); 02/28/2019). [facility] Threshold Audiogram (Pure Tone) Threshold Audiogram (Pure Tone) [address] [facility] Social History Combined list of available smoking, tobacco, and other social history from Department of Defense and Veterans Affairs facilities. Social History Type Response Date Comment [facility] e Sex Representation Male 04/05/2020 Unknow n Organization Sexual Orientation Ambula tory Pharmacy Gender identity Ambulator y Pharmacy This section is an empty soc ial history section. DoD Assessment and Plan Combined list of future care activities from Department of Defense and Veterans Affairs facilities (e.g., assessment and plan notes, appointments, orders, and referrals). Additional future care activities may be listed in the Plan of Care section. Result Assessment and Plan Date Source Assessment and Plan Future Appointments Appointment Date: 09/24/2024 09:40:00 AM Scheduled Provider: Location: [address] [place] [address] Appointment Type: ANNEMARIE FTR 09/24/2024 Ambulatory Pharmacy Functional Status Combined list of recent functional and cognitive assessments recorded at Department of Defense and Veterans Affairs ([place] Functional [place] Measurement (FIM) Scale: 1 = Total Assistance (Subject = 0% +), 2 = Maximal Assistance (Subject = 25% +), 3 = Moderate Assistance (Subject = 50% +), 4 = Minimal Assistance (Subject = 75% +), 5 = Supervision, 6 = Modified [place] (Device), 7 = Complete [place] (Timely, Safely). Assessment Date/Time Source Assessment Type Assessment Skill Assessment Score Assessment Details No data available for this section
== END 2024-09-24 15:47 | disposition home or self-care (01) ==
LOC: HO.HMCFM 14:42
PROVIDERS: PCP Family Medicine; Visit Provider Internal Medicine
DX: Z00.00 Encounter for general adult medical examination without abnormal findings (principal); R19.7 Diarrhea, unspecified; R35.89 Other polyuria

== ENCOUNTER → 2024-09-24 14:42 | Outpatient (BNVA) | payer OTHER, SELFPAY | PROVIDERS: PCP Family Medicine; Visit Provider Internal Medicine | DX: Z00.00 Encounter for general adult medical examination without abnormal findings (principal); R19.7 Diarrhea, unspecified; R35.89 Other polyuria | CPT/HCPCS: 96127 ==

== ENCOUNTER 2024-11-19 07:55 | Outpatient (AMB) | payer OTHER, SELFPAY ==
--- OUTSIDE RECORDS SUMMARY | 2024-11-19 07:59 | XMS_ITS | Continuity of Care Document ---
Author Name [facility] Organization [facility] Care Team Providers Care Sample Sawyer Name Role Phone [facility] Unavailable Unavailable Allergies, Adverse Reactions, Alerts Combined list of allergies from Department of Defense and Veterans Affairs facilities. It does not include entries that were removed or entered in error. Substance Category Reaction Severity Reaction type Status Date Reported Comments Source No Known Allergies Drug allergy (disorder) active 11/05/2019 [place] [address] Immunizations Combined list of available immunizations from the Department of Defense and Veterans Affairs facilities. Immunization Series Date Given Administered By Site Reaction Lot Number CVX Code Drug Tennis Instructor Status Comments Source influenza virus vaccine, inactivated 2023 ENE Alves victor hugo, right (delt oid) [id number] Innovasic Semiconductorirus, A Yeti Data complet ed influenza virus vaccine, inactivat ed 05/22/24 Given 8203R-1 04 MDG Influenza, injectable, Madin [place] Canine Kidney, quadrivalent with preservative 3 2020 [id number] Seqirus (SEQ) comple t ed Influenza , injectabl e, Madin Ayleen Canine Kidney, quadrival ent with preservat garry DoD SARS-COV-2 (COVID-19) vaccine, mRNA, spike protein, LNP, preservative free, 100 mcg or 50 mcg dose 2 2020 [id number] Seahorse Biosciencea Pepex Biomed[employer], Inc. (MOD) complet ed SARS-COV- 2 (COVID-19 ) vaccine, mRNA, spike protein, LNP, preservat garry free, 100 mcg or 50 mcg dose DoD SARS-COV-2 (COVID-19) vaccine, mRNA, spike protein, LNP, preservative free, 100 mcg or 50 mcg dose 1 2020 [id number] 207 Seahorse Bioscience[employer]pex [employer], Inc. (MOD) complet ed SARS-COV- 2 (COVID-19 ) vaccine, mRNA, spike protein, LNP, preservat garry free, 100 mcg or 50 mcg dose DoD hepatitis A vaccine, adult dosage 3 2019 [id number] SmithKline (SKB) complet ed hepatitis A vaccine, adult dosage DoD Influenza, injectable, quadrivalent, preservative free 1 2019 [id number] 150 Seqirus (SEQ) complet ed Influenza , injectabl e, quadrival ent, preservat garry free DoD Hepatitis B vaccine (recombinant) , CpG adjuvanted 3 2019 [id number] [employer]. (DVX) complet ed Hepatitis B vaccine (recombin ant), CpG adjuvante d DoD hepatitis A-hepatitis B vaccine 2019 [id number] GlaxoSmithKli ne complet ed hepatitis A-hepatit is B vaccine 12/19/19 Given Ambulat ory Pharmac y varicella virus vaccine 2019 [id number] Merck & Company Inc complet ed varicella virus vaccine 12/19/19 Given Ambulat ory Pharmac y hepatitis A-hepatitis B vaccine 2019 zzLef t Arm [id number] 104 GlaxoSmithKli ne complet ed hepatitis A-hepatit is B vaccine 12/19/19 Given Ambulat ory Pharmac y varicella virus vaccine 2019 zzLef t Arm [id number] 21 Merck & Company Inc complet ed varicella virus vaccine 12/19/19 Given Ambulat ory Pharmac y varicella virus vaccine 2 2019 NAYAN CLEARY P [id number] 21 Merck (MSD) complet ed varicella virus vaccine DoD hepatitis A and hepatitis B vaccine 2 2019 TYRONE CLEARYA P [id number] 104 SmithKline (SKB) complet ed hepatitis A and hepatitis B vaccine DoD varicella virus vaccine 2019 [id number] 21 Merck & Company Inc complet ed [...] varicella virus vaccine 2019 zzLef t Arm [id number] 21 Merck & Company Inc complet ed varicella virus vaccine 11/12/19 Given Ambulat ory Pharmac y varicella virus vaccine 1 2019 DAVON MOE [id number] 21 Merck (MSD) complet ed varicella virus vaccine DoD hepatitis A and hepatitis B vaccine 1 2019 DAVON MOE [id number] 104 Qlue (SKB) complet ed hepatitis A and hepatitis B vaccine DoD measles virus vaccine 0 2019 05 () Not Given measles virus vaccine DoD rubella virus vaccine 0 2019 06 () Not Given rubella virus vaccine DoD mumps virus vaccine 0 2019 07 () Not Given mumps virus vaccine DoD adenovirus vaccine, live 2019 [id number] 143 Teva Pharmaceutica complet ed adenoviru s vaccine, live 10/31/19 Given Ambulat ory Pharmac y tetanus, diphtheria, acellular pertu is 2019 [id number] 115 Piano MediaK[employer] oh complet ed tetanus, diphtheri a, acellular pertussis 10/31/19 Given Ambulat ory Pharmac y meningococcal A,C,Y,W-135 (MCV4P) 2019 [id number] 114 sanofi pasteur complet ed meningoco ccal A,C,Y,W-1 35 (MCV4P) 10/31/19 Given Ambulat ory Pharmac y influenza, injectable, quadrivalent 2019 [id number] 913 158 Seqirus complet ed influenza , injectabl e, quadrival ent 10/31/19 Given Ambulat ory Pharmac y influenza, injectable, quadrivalent- pf 2019 [id number] 913 150 Seqirus complet ed influenza , injectabl e, quadrival ent-pf 10/31/19 Given Ambulat ory Pharmac y poliovirus vaccine, inactivated 2019 [id number] 10 sanofi pasteur complet ed polioviru s vaccine, inactivat ed 10/31/19 Given Ambulat ory Pharmac y meningococcal A,C,Y,W-135 (MCV4P) 2019 zzLef t Arm [id number] 114 sanofi pasteur complet ed meningoco ccal A,C,Y,W-1 35 (MCV4P) 10/31/19 Given Ambulat ory Pharmac y poliovirus vaccine, inactivated 2019 zzLef t Arm [id number] 10 sanofi pasteur complet ed polioviru s vaccine, inactivat ed 10/31/19 Given Ambulat ory Pharmac y influenza, injectable, quadrivalent 2019 zzLef t Arm [id number] 913 158 Seqirus complet ed influenza , injectabl e, quadrival ent 10/31/19 Given Ambulat ory Pharmac y adenovirus vaccine, live 2019 zzLef t Arm [id number] 8 143 Teva Pharmaceutica ls complet ed adenoviru s vaccine, live 10/31/19 Given Ambulat ory Pharmac y tetanus, diphtheria, acellular pertu is 2019 zzLef t Arm [id number] 115 C[employer] [place] complet ed tetanus, diphtheri a, acellular pertussis 10/31/19 Given Ambulat ory Pharmac y poliovirus vaccine, inactivated 1 2019 DAVON MOE [id number] 10 Sanofi Pasteur (PMC) complet ed polioviru s vaccine, inactivat ed DoD meningococcal polysaccharid e (groups A, C, Y and W-135) diphtheria toxoid conjugate vaccine (MCV4P) 1 2019 DAVON MOE [id number] 114 Sanofi Pasteur (PMC) complet ed meningoco ccal polysacch aride (groups A, C, Y and W-135) diphtheri a toxoid conjugate vaccine (MCV4P) DoD tetanus toxoid, reduced diphtheria toxoid, and acellular pertu is vaccine, adsorbed 1 2019 DAVON MOE [id number] 115 [facility] (SKB) complet ed tetanus toxoid, reduced diphtheri a toxoid, and acellular pertussis vaccine, adsorbed DoD Adenovirus, type 4 and type 7, live, oral 1 2019 DAVON MOE [id number] 8 143 [facility] (BRR) complet ed Adenoviru s, type 4 and type 7, live, oral DoD Influenza, injectable, quadrivalent, preservative free 1 2019 [id number] 913 150 Seqirus (SEQ) complet ed Influenza , injectabl e, quadrival ent, preservat garry free DoD influenza, injectable, quadrivalent, contains preservative 1 2019 DAVON MOE [id number] 913 158 Seqirus (SEQ) complet ed influenza [...] Prevention' s HIV diagnostic algorithm. Refer to [facility] Lab Guide for additional information : [email or web address] x Testing performed by [...] ADM Date DC Date Status Disposition Source [place] [address](All ergy, [facility]) OUTPATIENT [id number] Notes Entered by: Kade MOE 31 Oct 2019 1420 ------- ------- ------- ------- -- tvc AARON BASSETT 10/30 [facility] [place] [address](A llergy, [facility]) [facility], [place] [address]([facility]) OUTPATIENT [id number] Notes Entered by: Eli SANTANA 04 Nov 2019 1301 ------- ------- ------- ------- -- Strep Prophyl axis JAMES SANTANA 11/03 Released w/o Limitations [facility] [place] [address]([facility] d) [facility], [place] [address](All ergy, [facility]) OUTPATIENT [id number] Notes Entered by: Kade MOE 12 Nov 2019 1135 ------- ------- ------- ------- -- tvc JAXON VERDUZCO 11/11 Released w/o Limitations [facility] [place] [address](A llergy, [facility]) [facility], [place] [address](Opt [facility]metry [facility] BMT [facility]) OUTPATIENT [id number] BMT REED BRADLEY 11/13 Released w/o Limitations [facility] [place] [address](O ptometr y Clinic BMT [facility]) [facility], [place] [address](All ergy, [facility]) OUTPATIENT [id number] Notes Entered by: FRANKO YOUSIF MA 19 Dec 2019 1006 ------- ------- ------- ------- -- TVC AARON BASSETT 12/18 Released w/o Limitations [facility] [place] [address](A llergy, [facility]) [place] [address](AFN G [address]) OUTPATIENT [id number] Notes Entered by: MATTHEW DEEPAKEDWIN YATES 04 Aug 2020 0818 ------- ------- ------- ------- -- CEASAR CASTRODEEPAK TRUDY 08/04 Released w/o Limitations [facility] [place] [address](A FNG [address] Med Sq-FM) [place] [address](AFN G [address] Sq-FM) OUTPATIENT [id number] Notes Entered by: LYNDON KWON 25 Sep 2020 1445 ------- ------- ------- ------- -- Annual Audiogr am MATTHEWDEEPAK TRUDY 09/25 Released w/o Limitations [facility] [place] [address](A FNG [address] Sq-FM) [place] [address](AFN G [address] Sq[facility]FM) OUTPATIENT [id number] Notes Entered by: JENNIFER MCELROY 20 Sep 2021 0940 ------- ------- ------- ------- -- Annual Audiogr am / VIDAL / PHAQ MATTHEWBISHNUDEEAPKEDWIN YATES 09/20 Released w/o Limitations [facility] [place] [address](A FNG [address] Med Sq-FM) 8203R-104 MDG Mass Vaccine [id number] 05/22 8203R-1 04 G 8203R-104 MDG Between Visit [id number] 05/28 Discharge Disposition: Home or Self Care 8203R-1 04 G 8203R-104 MDG Between Visit [id number] 06/19 Discharge Disposition: Home or Self Care 8203R-1 04 G 8203R-104 MDG Care Not Rendered [id number] 09/24 Discharge Disposition: Home or Self Care 8203R-1 04 MDG 8203R-104 MDG Care Not Rendered [id number] 10/17 Discharge Disposition: Home or Self Care 8203R-1 04 MDG Procedures Combined list of: 1) Procedures from Department of Veterans Affairs facilities going back up to thelast 18 months, not all VA non-surgical procedures are included; 2) All procedures from the Department of Defense facilities. Procedure Procedure Type Code Date Perfomer Comments Sourc e No data available for this section Ambulato ry Pharmacy Meningococcal Polysacch Diphtheria Toxoid Conjugate Vaccine Meningococcal Polysacch Diphtheria Toxoid Conjugate Vaccine 15557 DAVON MOE Meningococcal MCV4P (Menactra); Series #: 1; 0.5 mL; IM; Left Arm; Mfg: Sanofi Pasteur; Lot: [id number]; VIS given (Ginny: 02/28/2019). [facility] Vaccines Viral Polio, Inactivated (Salk) Vaccines Viral Polio, Inactivated (Salk) 75047 DAVON MOE IPV; Series #: 1; 0.5 mL; IM; Left Arm; Mfg: Sanofi Pasteur; Lot: [id number]; VIS given (Ginny: 05/15/19; 05/21/15 - Multiple). [facility] Tdap Vaccine Tdap Vaccine 59374 DAVON MOE Tdap; Series #: 1; 0.5 mL; IM; Left Arm; Mfg: Qlue; Lot: [id number]; VIS given (Ginny: 09/09/14). [facility] Vaccines Vaccines 15841 DAVON MOE Adenovirus Type 4 and 7; Series #: 1; 2 tablets; PO; Left Arm; Mfg: PowWow Inc; Lot: [id number]; VIS given (Ginny: 12/25/13). DoD Immunization Administration One Vaccine Immunization Administration One Vaccine [address] [facility] Immunization Administration Each Additional Vaccine Immunization Administration Each Additional Vaccine [address] [facility] Immunization Admin By Intranasal / Oral Route One Vaccine Immunization Admin By Intranasal / Oral Route One Vaccine [address] Supervised Injection Intramuscular Supervised Injection Intramuscular [address] [facility] Vaccines Viral Varicella (Active) Vaccines Viral Varicella (Active) 19101 DAVON MOE Varicella; Series #: 1; 0.5 mL; SC; Left Arm; Mfg: Merck; Lot: [id number]; VIS given (Ginny: 02/28/2019). [facility] Hepatitis A And Hepatitis B (Intramuscular Use) Adult Dosage Hepatitis A And Hepatitis B (Intramuscular Use) Adult Dosage 95136 DAVON MOE Hep A-Hep B (Twinrix); Series #: 1; 1.0 mL; IM; Left Arm; Mfg: SmithKline; Lot: [id number]; VIS given (Ginny: 02/03/16 (hep A); 02/28/2019). [facility] Spectacles Services Fitting Monofocals (Not For Aphakia) Spectacles Services Fitting Monofocals (Not For Aphakia) [address] [facility] Screening Test Of Visual Acuity, Quantitative, Bilateral Screening Test Of Visual Acuity, Quantitative, Bilateral [address] [facility] Vaccines Viral Varicella (Active) Vaccines Viral Varicella (Active) 06254 GRANDBERRY, NAYAN P Varicella; Series #: 2; 0.5 mL; SC; Left Arm; Mfg: Merck; Lot: [id number]; VIS given (Ginny: 02/28/2019). [facility] Hepatitis A And Hepatitis B (Intramuscular Use) Adult Dosage Hepatitis A And Hepatitis B (Intramuscular Use) Adult Dosage 32186 GRANDBERRY, NAYAN P Hep A-Hep B (Twinrix); Series #: 2; 1.0 mL; IM; Left Arm; Mfg: SmithKline; Lot: [id number]; VIS given (Ginny: 02/03/16 (hep A); 02/28/2019). [facility] Threshold Audiogram (Pure Tone) Threshold Audiogram (Pure Tone) [address] [facility] Social History Combined list of available smoking, tobacco, and other social history from Department of Defense and Veterans Affairs facilities. Social History Type Response Date Comment Sourc e Sex Representation Male (finding) 04/05/2020 Un known Organization Sexual Orientation Ambula tory Pharmacy Gender identity Ambulator y Pharmacy This section is an empty social history section. DoD Assessment and Plan Combined list of future care activities from Department of Defense and Veterans Affairs facilities (e.g., assessment and plan notes, appointments, orders, and referrals). Additional future care activities may be listed in the Plan of Care section. Result Assessment and Plan Date Source Assessment and Plan No data available for this section 11/19/2024 Ambulatory Pharmacy Functional Status Combined list of recent functional and cognitive assessments recorded at [facility] and [facility] [place] Functional [place] Measurement (FIM) Scale: 1 = Total Assistance (Subject = 0% +), 2 = Maximal Assistance (Subject = 25% +), 3 = Moderate Assistance (Subject = 50% +), 4 = Minimal Assistance (Subject = 75% +), 5 = Supervision, 6 = Modified Shoup (Device), 7 = Complete [place]oup (Timely, Safely). Assessment Date/Time Source Assessment Type Assessment Skill Assessment Score Assessment Details No data available for this section
--- NOTE | 2024-11-19 08:10 | A.OFFVIS_ITS ---
Intake Visit Reasons: Erectile Dysfunction Intake Note: New Patient presents for initial visit for Erectile Dysfunction Urology Medications: none Blood Thinner: none Diabetic: no It Telecom Technician Required: No Accompanied by: Self / Same As Patient Allergies No Known Allergies Allergy (Verified 11/19/24 08:51) Medication List - Last Reconciled 11/19/24 by MERLYN Solis pantoprazole 20 mg PO DAILY 30 days peg 3350-electrolytes 236-22.74-6.74 -5.86 gram (Golytely) 240 mL PO Q10M HPI Comments Details: Vinay is a pleasant 24-year-old male patient of Dr. Eloina Kendall. He presents to the office today as a new patient for ED and urinary frequency. In discussion with the patient today he reports having followed up with his PCP in discussing issues that he had been experiencing with ED however he feels that they have since resolved. He reports feeling ED could have been related to stress as he has recently purchased his own home. He does however report urinary frequency. He reports having had BECKIE with PCP that did not know any abnormalities. We discussed potential causes of urinary frequency as well as ED patient had been experiencing. We discussed further treatment options and risks and benefits of these treatment options. In office urinalysis results were reviewed with the patient today. He otherwise denies incontinence, nocturia, hematuria, dysuria, foul smelling urine, changes to urinary stream, flank pain, fever, and or chills. We discussed lifestyle modifications to assist with ED as well as urinary frequency. We discussed bladder triggers/irritants. We also discussed obtaining retroperitoneal ultrasound for further assessment evaluation. We discussed potential near future in office urodynamics and or cystoscopy if symptoms continue and worsen. History of Present Illness The patient is a 24-year-old male presenting with urinary frequency. He has experienced a frequent urge to urinate for an extended duration and finds the symptoms more pronounced during specific situations like air travel. Consumption of fluids does not seem to correlate with the urgency, and he typically does not experience nocturia, except when he naturally wakes. His prostate was previously examined by another physician and showed slight enlargement, possibly indicating benign prostatic hyperplasia, though not significantly problematic. He also faced erectile dysfunction issues previously, characterized by incomplete erections, which have since improved. The improvement might correlate with decreasing stress and alterations in lifestyle routine. The present focus is on addressing his urinary frequency as it disrupts daily activities. Plan We addressed the urinary frequency symptoms and examined the possibility potential causes. An ultrasound is planned to get a clearer understanding of prostate size and anatomy. The patient is to maintain a bladder diary for a few weeks to provide insight into his fluid intake and urinary patterns. Avoidance of foods and drinks that may irritate the bladder was suggested, alongside managing stressors. The plan aims to establish a clearer diagnosis and consider interventions if the symptoms persist. Patient was informed and verbally consented to the use of an ambient scribe for clinic note documentation during this visit. Discussion Notes I discussed with the patient the plan to evaluate his urinary symptoms and follow through with an ultrasound examination to measure prostate size a ccurately. We talked about using a bladder diary to track intake and output, which will guide further management options. Potential dietary and lifestyle triggers contributing to urinary frequency were identified and avoidance strategies were suggested. The potential previous stress-related erectile dysfunction had improved, indicating lifestyle or psychological causation. We decided to focus on alleviating the urinary issues and monitor any recurring erectile symptoms as secondary. The patient consented to proceed with the planned diagnostic steps and was informed about indications for further intervention depending on the ultrasound outcomes. [facility] Medical History Fx. left wrist Chest pain Surgical History No pertinent past surgical history Family History Mother Substance abuse in family Mental health disorder Brother Mental health disorder Sister Mental health disorder Social History Household Members: Significant Other Both parents involved: No Caregiver staying overnight: No Housing: Apartment Are you a primary team primary care physician to a significant other at home: No Do you presently have visiting nurse or other home services: No 75 years or older and lives alone: No Alcohol intake: current Comment: on occasion Patient Tobacco Use Status: Never used Tobacco e-Cigarette/Vaping Use: Currently Using Special anthony needs: No service: Yes Current occupational status: employed 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 [employer] Cognitive needs: No Hearing needs: No Vision needs: Yes (Patient wears both contacts and glasses.) Review of Systems Const All systems reviewed & are unremarkable except as noted in HPI and below Physical Exam Const General: cooperative, healthy appearing, comfortable, no acute distress, well developed, alert and awake Nutritional Appearance: average body habitus Orientation/consciousness: patient oriented x3 Limitations: no limitations HEENT Head: Yes normal to inspection, Yes normocephalic and Yes atraumatic Ears: hearing grossly normal bilaterally Eyes General: appearance normal, both eyes and all related structures Neck Neck: Yes normal visual inspection and Yes trachea midline Chest Chest palpation & inspection: normal inspection of the chest Resp Effort & Inspection: normal respiratory effort and able to speak in complete sentences Cardio Rate: regular rate GI Inspection: Yes normal to inspection General: Yes no CVA tenderness Back/Spine/Pelvis Back: no CVA tenderness Skin General skin exam: no rashes or lesions noted Neuro General: patient oriented x3 Extrem General: Yes normal to inspection Psych Appearance: grossly normal and well kempt Mental Status: mental status grossly normal Speech and movement: Normal speech and movement present and Clear speech present Affect: normal affect Attitude: cooperative Thought process: Normal thought process present Thought content: Normal thought content present Insight: Fair insight present (Psych) Judgement: Fair judgement present (Psych) Results AMB Urinalysis, Automated UA Leukoctes 0 Carmen/uL Last Edit by [facility] on 11/19/24 08:21 UA Nitrite Last Edit by [facility] on 11/19/24 08:21 UA Urobilinogen 0.2 mg/dL Last Edit by [employer] on 11/19/24 08:21 UA Protein 0 mg/dL Last Edit by [facility] on 11/19/24 08:21 UA pH 6.0 Last Edit by [facility] Duke on 11/19/24 08:21 UA Blood 0 Benny/uL Last Edit by [facility] on 11/19/24 08:21 UA Specific Wilton 1.015 Last Edit by [employer] on 11/19/24 08:21 UA Ketone Last Edit by Chanel Duke on 11/19/24 08:21 UA Bilirubin 0 mg/dL Last Edit by Chanel Duke on 11/19/24 08:21 UA Glucose 0 mg/dL Last Edit by Chanel Duke on 11/19/24 08:21 Results Reviewed Results Reviewed: Laboratory Last Values Urine pH (Auto) 6.0 11/19/24 08:16 Specific Wilton (Auto) 1.015 11/19/24 08:16 Urine Protein (Auto) 0 mg/dL 11/19/24 08:16 Glucose (UA)(Auto) 0 mg/dL 11/19/24 08:16 Urine Blood (Auto) 0 Benny/uL 11/19/24 08:16 Urine Bilirubin (Auto) 0 mg/dL 11/19/24 08:16 Urine Urobilinogen (Auto) 0.2 mg/dL 11/19/24 08:16 Leukocyte Esterase (Auto) 0 Carmen/uL 11/19/24 08:16 Assessment & Plan Assessment & Plan (1) Erectile dysfunction: Code(s): N52.9 - Male erectile dysfunction, unspecified Category: Medical (2) Urinary frequency: Code(s): R35.0 - Frequency of micturition Category: Medical Plan In office urinalysis results reviewed with the patient today; as noted above. We discussed at length potential causes of urinary frequency as well as erectile dysfunction and further treatment options of these urological conditions and risks and benefits of these treatment options. We discussed obtaining retroperitoneal ultrasound for further assessment evaluation. We discussed lifestyle modifications to assist with ED as well as urinary frequency. We discussed bladder triggers/irritants. Urinal provided for bladder diary Follow-up in 1-3 months with imaging to be completed prior; or sooner with any issues, concerns, and or questions. Orders: Orders AMB Urinalysis Automated Today Z13.9 - Encounter for screening, unspecified US retroperitoneal comp Today R35.0 - Frequency of micturition Patient Instructions: The patient had an opportunity to ask questions regarding the treatment plan. All questions were answered. Physical exam, labs, and imaging were discussed and reviewed in detail. As well as risks, benefits, and discussion of treatment choices. No major barriers to understanding were identified. The patient expressed understanding and agreement with the above treatment plan. The patient was made aware they should contact our office by phone for worsening of their current condition, the appearance of new symptoms, or with any qu estions or concerns. Compliance is encouraged with any medications and follow up testing that is ordered. It is a privilege to be allowed the opportunity to participate in? your urological care.? Again, if you have any questions or concerns If you have any questions or concerns please do not hesitate to contact me. The office is [phone]. This note is constructed using voice recognition software. While every effort has been made to ensure accuracy senior project architect errors may have been included. Yours sincerely, MERLYN Solis Coding Level of Care Code New Pt Level 3 (64026) Diagnoses Erectile dysfunction N52.9 Urinary frequency R35.0
== END 2024-11-19 08:39 | disposition home or self-care (01) ==
LOC: HO.HUSH 07:55
PROVIDERS: PCP Family Medicine; Visit Provider Nurse Practitioner Family
DX: N52.9 Male erectile dysfunction, unspecified (principal); R35.0 Frequency of micturition; Z13.9 Encounter for screening, unspecified
CPT/HCPCS: 99203

== ENCOUNTER → 2024-11-19 07:55 | Outpatient (BNVA) | payer OTHER, SELFPAY | PROVIDERS: PCP Family Medicine; Visit Provider Nurse Practitioner Family | DX: N52.9 Male erectile dysfunction, unspecified (principal); R35.0 Frequency of micturition | CPT/HCPCS: 81003; 99202 ==

== ENCOUNTER 2024-11-22 07:52 | Outpatient (REF) | payer OTHER, SELFPAY ==
--- NOTE | ~2024-11-22 | US_ITS ---
CLINICAL HISTORY: K82.4 - Cholesterolosis of gallbladder US abdomen limited with duplex and color Doppler Comparison: None Findings: Visualized pancreas is normal. Tail obscured by bowel gas. Liver is normal in size and echotexture. Right lobe length 11.4 cm. No focal hepatic masses. Common duct 2.0 mm diameter. Gallbladder is physiologically distended. No gallstones, sludge or wall abnormalities. 4 mm gallbladder polyp. No pericholecystic fluid. No sonographic Pulido sign. Main portal vein antegrade. Right kidney measures 10.0 cm in length. Normal cortical width and echotexture. No hydronephrosis calculus or mass. Impression: 1. No cholelithiasis or evidence of cholecystitis. 2. 4 mm gallbladder polyp. This document has been electronically signed by: Timothy Yeh MD on 11/22/2024 15:36:50
--- OUTSIDE RECORDS SUMMARY | 2024-11-22 07:56 | XMS_ITS | Continuity of Care Document ---
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 It does not include entries that were removed or entered in error. Substance Category Reaction Severity Reaction type Status Date Reported Comments Source No Known Allergies Drug allergy (disorder) active 11/05/2019 [place] [address] Immunizations Combined list of available immunizations from the Department of Defense and Veterans Affairs facilities. Immunization Series Date Given Administered By Site Reaction Lot Number CVX Code Drug Health Science Writer Status Comments Source influenza virus vaccine, inactivated 2023 ENE Alves victor hugo, right (delt oid) [id number] [employer], A [employer] complet ed influenza virus vaccine, inactivat ed 05/22/24 Given 8203R-1 04 MDG Influenza, injectable, Madin [place] Canine Kidney, quadrivalent with preservative 3 2020 [id number] Seqirus (SEQ) comple t ed Influenza , injectabl e, Madin Ayleen Canine Kidney, quadrival ent with preservat garry DoD SARS-COV-2 (COVID-19) vaccine, mRNA, spike protein, LNP, preservative free, 100 mcg or 50 mcg dose 2 2020 [id number] [employer]. (MOD) complet ed SARS-COV- 2 (COVID-19 ) vaccine, mRNA, spike protein, LNP, preservat garry free, 100 mcg or 50 mcg dose DoD SARS-COV-2 (COVID-19) vaccine, mRNA, spike protein, LNP, preservative free, 100 mcg or 50 mcg dose 1 2020 [id number] VHSqu[employer]. (MOD) complet ed SARS-COV- 2 (COVID-19 ) vaccine, mRNA, spike protein, LNP, preservat garry free, 100 mcg or 50 mcg dose DoD hepatitis A vaccine, adult dosage 3 2019 [id number] 52 SmithKline (SKB) complet ed hepatitis A vaccine, adult dosage DoD Influenza, injectable, quadrivalent, preservative free 1 2019 [id number] 150 Seqirus (SEQ) complet ed Influenza , injectabl e, quadrival ent, preservat garry free DoD Hepatitis B vaccine (recombinant) , CpG adjuvanted 3 2019 [id number] [employer]. (DVX) complet ed Hepatitis B vaccine (recombin ant), CpG adjuvante d DoD hepatitis A-hepatitis B vaccine 2019 [id number] GlaxoSmithKli ne complet ed hepatitis A-hepatit is B vaccine 12/19/19 Given Ambulat ory Pharmac y varicella virus vaccine 2019 [id number] 21 Merck & Company Inc complet ed varicella virus vaccine 12/19/19 Given Ambulat ory Pharmac y hepatitis A-hepatitis B vaccine 2019 zzLef t Arm [id number] 104 GlaxoSmithKli ne complet ed hepatitis A-hepatit is B vaccine 12/19/19 Given Ambulat ory Pharmac y varicella virus vaccine 2019 zzLef t Arm [id number] 21 Merck & Company Inc complet ed varicella virus vaccine 12/19/19 Given Ambulat ory Pharmac y varicella virus vaccine 2 2019 NAYAN CLEARY P [id number] 21 Merck (MSD) complet ed varicella virus vaccine DoD hepatitis A and hepatitis B vaccine 2 2019 TYRONE CLEARYA P [id number] 104 SmithKline (SKB) complet ed hepatitis A and hepatitis B vaccine DoD varicella virus vaccine 2019 [id number] 21 Merck & Company Inc complet ed [...] varicella virus vaccine 2019 zzLef t Arm [id number] 21 Merck & Company Inc complet ed varicella virus vaccine 11/12/19 Given Ambulat ory Pharmac y varicella virus vaccine 1 2019 DAVON MOE [id number] 21 Merck (MSD) complet ed varicella virus vaccine DoD hepatitis A and hepatitis B vaccine 1 2019 DAVON MOE [id number] Lalina (SKB) complet ed hepatitis A and hepatitis B vaccine DoD measles virus vaccine 0 2019 05 () Not Given measles virus vaccine DoD rubella virus vaccine 0 2019 06 () Not Given rubella virus vaccine DoD mumps virus vaccine 0 2019 07 () Not Given mumps virus vaccine DoD adenovirus vaccine, live 2019 [id number] 143 Teva Pharmaceutica complet ed adenoviru s vaccine, live 10/31/19 Given Ambulat ory Pharmac y tetanus, diphtheria, acellular pertu is 2019 [id number] 115 [employer] sc complet ed tetanus, diphtheri a, acellular pertussis 10/31/19 Given Ambulat ory Pharmac y meningococcal A,C,Y,W-135 (MCV4P) 2019 [id number] 114 sanofi pasteur complet ed meningoco ccal A,C,Y,W-1 35 (MCV4P) 10/31/19 Given Ambulat ory Pharmac y influenza, injectable, quadrivalent 2019 [id number] 913 158 Seqirus complet ed influenza , injectabl e, quadrival ent 10/31/19 Given Ambulat ory Pharmac y influenza, injectable, quadrivalent- pf 2019 [id number] 913 150 Seqirus complet ed influenza , injectabl e, quadrival ent-pf 10/31/19 Given Ambulat ory Pharmac y poliovirus vaccine, inactivated 2019 [id number] 10 sanofi pasteur complet ed polioviru s vaccine, inactivat ed 10/31/19 Given Ambulat ory Pharmac y meningococcal A,C,Y,W-135 (MCV4P) 2019 zzLef t Arm [id number] 114 sanofi pasteur complet ed meningoco ccal A,C,Y,W-1 35 (MCV4P) 10/31/19 Given Ambulat ory Pharmac y poliovirus vaccine, inactivated 2019 zzLef t Arm [id number] 10 sanofi pasteur complet ed polioviru s vaccine, inactivat ed 10/31/19 Given Ambulat ory Pharmac y influenza, injectable, quadrivalent 2019 zzLef t Arm [id number] 913 158 Seqirus complet ed influenza , injectabl e, quadrival ent 10/31/19 Given Ambulat ory Pharmac y adenovirus vaccine, live 2019 zzLef t Arm [id number] 8 143 Teva Pharmaceutica ls complet ed adenoviru s vaccine, live 10/31/19 Given Ambulat ory Pharmac y tetanus, diphtheria, acellular pertu is 2019 zzLef t Arm [id number] 115 [employer] complet ed tetanus, diphtheri a, acellular pertussis 10/31/19 Given Ambulat ory Pharmac y poliovirus vaccine, inactivated 1 2019 DAVON MOE [id number] 10 Sanofi Pasteur (PMC) complet ed polioviru s vaccine, inactivat ed DoD meningococcal polysaccharid e (groups A, C, Y and W-135) diphtheria toxoid conjugate vaccine (MCV4P) 1 2019 DAVON MOE [id number] 114 Sanofi Pasteur (PMC) complet ed meningoco ccal polysacch aride (groups A, C, Y and W-135) diphtheri a toxoid conjugate vaccine (MCV4P) DoD tetanus toxoid, reduced diphtheria toxoid, and acellular pertu is vaccine, adsorbed 1 2019 DAVON MOE [id number] 115 [facility] (SKB) complet ed tetanus toxoid, reduced diphtheri a toxoid, and acellular pertussis vaccine, adsorbed DoD Adenovirus, type 4 and type 7, live, oral 1 2019 DAVON MOE [id number] 8 143 [facility] (BRR) complet ed Adenoviru s, type 4 and type 7, live, oral DoD Influenza, injectable, quadrivalent, preservative free 1 2019 [id number] 913 150 Seqirus (SEQ) complet ed Influenza , injectabl e, quadrival ent, preservat garry free DoD influenza, injectable, quadrivalent, contains preservative 1 2019 DAVON MOE [id number] 913 158 Seqirus (SEQ) complet ed influenza [...] Prevention' s HIV diagnostic algorithm. Refer to [facility] Lab Guide for additional information : [email or web address] x Testing performed [...] ADM Date DC Date Status Disposition Source [place] [address](All ergy, [facility]) OUTPATIENT [id number] Notes Entered by: Kade MOE 31 Oct 2019 1420 ------- ------- ------- ------- -- tvc AARON BASSETT 10/30 [facility]ased w/o Limitations [facility] [place] [address](A llergy, [facility]) [facility], [place] [address]([facility]) OUTPATIENT [id number] Notes Entered by: Eli SANTANA 04 Nov 2019 1301 ------- ------- ------- ------- -- Strep Prophyl axis JAMES SANTANA 11/03 Released w/o Limitations [facility] [place] [address]([facility] d) [facility], [place] [address](All ergy, [facility]) OUTPATIENT [id number] Notes Entered by: Kade MOE 12 Nov 2019 1135 ------- ------- ------- ------- -- tvc JAXON VERDUZCO 11/11 Released w/o Limitations [facility] [place] [address](A llergy, [facility]) [facility], [place] [address](Opt ometry Clinic BMT [facility]) OUTPATIENT [id number] BMT REED BRADLEY 11/13 Released w/o Limitations [facility] [place] [address](O ptometr y Clinic BMT [facility]) [facility], [place] [address](All ergy, [facility]) OUTPATIENT [id number] Notes Entered by: FRANKO YOUSIF MA 19 Dec 2019 1006 ------- ------- ------- ------- -- TVC AARON BASSETT 12/18 Released w/o Limitations [facility] [place] [address](A llergy, [facility]) [place] [address](AFN G [address]) OUTPATIENT [id number] Notes Entered by: MATTHEW DEEPAKEDWIN YATES 04 Aug 2020 0818 ------- ------- ------- ------- -- CEASAR CASTRODEEPAK TRUDY 08/04 Released w/o Limitations [place] [address](A FNG [address] Med Sq-FM) [place] [address](AFN G [address] Sq-FM) OUTPATIENT [id number] Notes Entered by: LYNDON KWON 25 Sep 2020 1445 ------- ------- ------- ------- -- Annual Audiogr am MATTHEWDEEPAK TRUDY 09/25 Released w/o Limitations [place] [address](A FNG [address] Sq-FM) [place] [address](AFN G [address] Sq-FM) OUTPATIENT [id number] Notes Entered by: JENNIFER MCELROY 20 Sep 2021 0940 ------- ------- ------- ------- -- Annual Audiogr am / VIDAL / PHAQ MATTHEWBISHNUDEEPAKEDWIN YATES 09/20 Released w/o [place]itations [place] [address](A FNG [address] Med Sq-FM) 8203R-104 MDG Mass Vaccine [id number] 05/22 8203R-1 04 G 8203R-104 MDG Between Visit [id number] 05/28 Discharge Disposition: Home or Self Care 8203R-1 04 G 8203R-104 MDG Between Visit [id number] 06/19 Discharge Disposition: Home or Self Care 8203R-1 04 G 8203R-104 MDG Care Not Rendered [id number] 09/24 Discharge Disposition: Home or Self Care 8203R-1 04 MDG 8203R-104 MDG Care Not Rendered [id number] 10/17 Discharge Disposition: Home or Self Care 8203R-1 04 MDG Procedures Combined list of: 1) Procedures from Department of Veterans Affairs facilities going back up to thelast 18 months, not all VA non-surgical procedures are included; 2) All procedures from the Department of Defense facilities. Procedure Procedure Type Code Date Perfomer Comments Sourc e Meningococcal Polysacch Diphtheria Toxoid Conjugate Vaccine Meningococcal Polysacch Diphtheria Toxoid Conjugate Vaccine 48992 DAVON MOE Meningococcal MCV4P (Menactra); Series #: 1; 0.5 mL; IM; Left Arm; Mfg: Sanofi Pasteur; Lot: [id number]; VIS given (Ginny: 02/28/2019). [facility] Vaccines Viral Polio, Inactivated (Salk) Vaccines Viral Polio, Inactivated (Salk) 57240 DAVON MOE IPV; Series #: 1; 0.5 mL; IM; Left Arm; Mfg: Sanofi Pasteur; Lot: [id number]; VIS given (Ginny: 05/15/19; 05/21/15 - Multiple). [facility] Tdap Vaccine Tdap Vaccine 79907 DAVON MOE Tdap; Series #: 1; 0.5 mL; IM; Left Arm; Mfg: Lalina; Lot: [id number]; VIS given (Ginny: 09/09/14). [facility] Vaccines Vaccines 16198 DAVON MOE Adenovirus Type 4 and 7; Series #: 1; 2 tablets; PO; Left Arm; Mfg: GageIn; Lot: [id number]; VIS given (Ginny: 12/25/13). DoD Immunization Administration One Vaccine Immunization Administration One Vaccine 63819 DAVON MOE [facility] Immunization Administration Each Additional Vaccine Immunization Administration Each Additional Vaccine 13902 DAVON MOE [facility] Immunization Admin By Intranasal / Oral Route One Vaccine Immunization Admin By Intranasal / Oral Route One Vaccine [address] Supervised Injection Intramuscular Supervised Injection Intramuscular 80979 JAMES SANTANA [facility] Vaccines Viral Varicella (Active) Vaccines Viral Varicella (Active) 80602 DAVON MOE Varicella; Series #: 1; 0.5 mL; SC; Left Arm; Mfg: Merck; Lot: [id number]; VIS given (Ginny: 02/28/2019). DoD Hepatitis A And Hepatitis B (Intramuscular Use) Adult Dosage Hepatitis A And Hepatitis B (Intramuscular Use) Adult Dosage 45845 DAVON MOEE Hep A-Hep B (Twinrix); Series #: 1; 1.0 mL; IM; Left Arm; Mfg: SmithGryphon Networksine; Lot: [id number]; VIS given (Ginny: 02/03/16 (hep A); 02/28/2019). DoD [employer] Fitting Monofocals (Not For Aphakia) [employer] Fitting Monofocals (Not For Aphakia) 91818 REED BRADLEY [facility] Screening Test Of Visual Acuity, Quantitative, Bilateral Screening Test Of Visual Acuity, Quantitative, Bilateral 24681 REED BRADLEY [facility] Vaccines Viral Varicella (Active) Vaccines Viral Varicella (Active) 23433 GRANDBERRY, NAYAN P Varicella; Series #: 2; 0.5 mL; SC; Left Arm; Mfg: Merck; Lot: [id number]; VIS given (Ginny: 02/28/2019). DoD Hepatitis A And Hepatitis B (Intramuscular Use) Adult Dosage Hepatitis A And Hepatitis B (Intramuscular Use) Adult Dosage 84612 GRANDBERRY, NAYAN P Hep A-Hep B (Twinrix); Series #: 2; 1.0 mL; IM; Left Arm; Mfg: SmithGryphon Networksine; Lot: [id number]; VIS given (Ginny: 02/03/16 (hep A); 02/28/2019). DoD Threshold Audiogram (Pure Tone) Threshold Audiogram (Pure Tone) 77919 DEEPAK CASTRO NOBAMBI [facility] No data available for this section Ambulato ry Pharmacy Social History Combined list of available smoking, tobacco, and other social history from Department of Defense and Veterans Affairs facilities. Social History Type Response Date Comment Sour e Sex Representation Male (finding) 04/05/2020 Un known Organization This section is an empty social history section. [facility] Sexual Orientation Ambula tory Pharmacy Gender identity [...] Plan No data available for this section 11/22/2024 Ambulatory Pharmacy Functional Status Combined list of recent functional and cognitive assessments recorded at Department of Defense and [facility] [place] Functional [place] Measurement (FIM) Scale: 1 = Total Assistance (Subject = 0% +), 2 = Maximal Assistance (Subject = 25% +), 3 = Moderate Assistance (Subject = 50% +), 4 = Minimal Assistance (Subject = 75% +), 5 = Supervision, 6 = Modified [place] (Device), 7 = Complete [place] (Timely, Safely). Assessment Date/Time Source Assessment Type Assessment Skill Assessment Score Assessment Details No data available for this section
== END 2024-11-22 07:53 | disposition home or self-care (01) ==
LOC: HO.US 07:52
PROVIDERS: PCP Family Medicine; Visit Provider Internal Medicine
DX: K82.4 Cholesterolosis of gallbladder (principal)
CPT/HCPCS: 76705

== ENCOUNTER → 2024-11-22 07:52 | Outpatient (BNV) | payer OTHER, SELFPAY | PROVIDERS: PCP Family Medicine; Visit Provider Radiology Diagnostic Radiology | DX: K82.4 Cholesterolosis of gallbladder (principal) | CPT/HCPCS: 76705 ==

== ENCOUNTER 2024-12-12 07:33 | Day surgery (SDC) | payer OTHER, SELFPAY ==
--- OUTSIDE RECORDS SUMMARY | 2024-10-25 08:15 | XMS_ITS | Continuity of Care Document ---
Author Name [facility] Organization [facility] Care Team Providers Care Theater Usher Name Role Phone [facility] Unavailable Unavailable Immunizations Combined list of available immunizations from the Department of Defense and Veterans Affairs facilities. Immunization Series Date Given Administered By Site Reaction Lot Number CVX Code Drug Water Quality Manager Status Comments Source influenza virus vaccine, inactivated 2023 ENE Alves victor hugo, right (delt oid) [id number] [employer]Tide, A [employer] Company complet ed influenza virus vaccine, inactivat ed 05/22/24 Given 8203R-1 04 MDG hepatitis A-hepatitis B vaccine 2019 [id number] GlaxoSmithKli ne complet ed hepatitis A-hepatit is B vaccine 12/19/19 Given Ambulat ory Pharmac y varicella virus vaccine 2019 [id number] 21 Merck & Company Inc complet ed varicella virus vaccine 12/19/19 Given Ambulat ory Pharmac y hepatitis A-hepatitis B vaccine 2019 zzLef t Arm [id number] 104 GlaxoSmithKli ne complet ed hepatitis A-hepatit is B vaccine 12/19/19 Given Ambulat ory Pharmac y varicella virus vaccine 2019 zzLef t Arm [id number] 21 Merck & Company Inc complet ed varicella virus vaccine 12/19/19 Given Ambulat ory Pharmac y varicella virus vaccine 2019 [id number] 21 Merck & Company Inc complet ed [...] varicella virus vaccine 2019 zzLef t Arm [id number] 21 Merck & Company Inc complet ed varicella virus vaccine 11/12/19 Given Ambulat ory Pharmac y adenovirus vaccine, live 2019 [id number] 8 143 Teva Pharmaceutica ls complet ed adenoviru s vaccine, live 10/31/19 Given Ambulat ory Pharmac y tetanus, diphtheria, acellular pertu is 2019 [id number] 115 [employer] complet ed tetanus, diphtheri a, acellular pertussis 10/31/19 Given Ambulat ory Pharmac y meningococcal A,C,Y,W-135 (MCV4P) 2019 [id number] 114 sanofi pasteur complet ed meningoco ccal A,C,Y,W-1 35 (MCV4P) 10/31/19 Given Ambulat ory Pharmac y influenza, injectable, quadrivalent 2019 [id number] 913 158 Seqirus complet ed influenza , injectabl e, quadrival ent 10/31/19 Given Ambulat ory Pharmac y influenza, injectable, quadrivalent- pf 2019 [id number] 913 150 Seqirus complet ed influenza , injectabl e, quadrival ent-pf 10/31/19 Given Ambulat ory Pharmac y poliovirus vaccine, inactivated 2019 [id number] 10 sanofi pasteur complet ed polioviru s vaccine, inactivat ed 10/31/19 Given Ambulat ory Pharmac y meningococcal A,C,Y,W-135 (MCV4P) 2019 zzLef t Arm [id number] 114 sanofi pasteur complet ed meningoco ccal A,C,Y,W-1 35 (MCV4P) 10/31/19 Given Ambulat ory Pharmac y poliovirus vaccine, inactivated 2019 zzLef t Arm [id number] 10 sanofi pasteur complet ed polioviru s vaccine, inactivat ed 10/31/19 Given Ambulat ory Pharmac y influenza, injectable, quadrivalent 2019 zzLef t Arm [id number] 913 158 Seqirus complet ed influenza , injectabl e, quadrival ent 10/31/19 Given Ambulat ory Pharmac y adenovirus vaccine, live 2019 zzLef t Arm [id number] 8 143 Teva Pharmaceutica ls complet ed adenoviru s vaccine, live 10/31/19 Given Ambulat ory Pharmac y tetanus, diphtheria, acellular pertu is 2019 zzLlaila red Arm [id number] 115 [employer] ne complet ed tetanus, diphtheri a, acellular pertussis 10/31/19 Given Ambulat ory Pharmac y Results Combined list of recent chemistry, hematology [...] Prevention' s HIV diagnostic algorithm. Refer to [facility] Lab Guide for additional information : [email or web address]/ [email or web address] x Testing performed by [employer] marry solo. 5600A-U [employer] EPILAB Miscellan eous Sendouts Repository Sample Received [...] ADM Date DC Date Status Disposition Source 8203R-104 MDG Mass Vaccine [id number] 05/22 8203R-1 04 MDG 8203R-104 MDG Between Visit [id number] 05/28 Discharge Disposition: Home or Self Care 8203R-1 04 MDG 8203R-104 MDG Between Visit [id number] 06/19 Discharge Disposition: Home or Self Care 8203R-1 04 MDG 8203R-104 MDG Care Not Rendered [id number] 09/24 Discharge Disposition: Home or Self Care 8203R-1 04 MDG 8203R-104 MDG Preclinic [id number] 10/17 8203R-1 04 MDG Procedures Combined list of: 1) Procedures from Department of Veterans Affairs facilities going back up to thelast 18 months, not all [place] non-surgical procedures are included; 2) All procedures from the Department of [facility] facilities. Procedure Procedure Type Code Date Perfomer Comments Sourc e No data available for this section Ambulatory P harmacy Social History Combined list of available smoking, tobacco, and other social history from Department of Defense and Veterans Affairs facilities. Social History Type Response Date Comment Sourc e Sex Representation Male (finding) 04/05/2020 Un known Organization Sexual Orientation Ambula tory Pharmacy Gender identity Ambulator y Pharmacy Assessment and Plan Combined list of future care activities from Department of Defense and Veterans Affairs facilities (e.g., assessment and plan notes, appointments, orders, and referrals). Additional future care activities may be listed in the Plan of Care section. Result Assessment and Plan Date Source Assessment and Plan No data available for this section 10/25/2024 Ambulatory Pharmacy Functional Status Combined list of recent functional and cognitive assessments recorded at [facility] of [facility] and [facility] [place] Functional [place] Measurement (FIM) Scale: 1 = Total Assistance (Subject = 0% +), 2 = Maximal Assistance (Subject = 25% +), 3 = Moderate Assistance (Subject = 50% +), 4 = Minimal Assistance (Subject = 75% +), 5 = Supervision, 6 = Modified [place] (Device), 7 = Complete [place] (Timely, Safely). Assessment Date/Time Source Assessment Type Assessment Skill Assessment Score Assessment Details No data available for this section
[2024-12-10 15:07] VITALS: BMI 19.7
--- NOTE | 2024-12-11 11:36 | P.CONAN_ITS ---
HPI - Anesthesia Eval Consult details Narrative: 24yo M for Colonoscopy PMF Active Problems Active Problems: All Active Problems Urinary frequency (Acute) Erectile dysfunction (Acute) Polyuria (Acute) Multiple nevi (Acute) Gallbladder polyp (Acute) Screening for metabolic disorder (Acute) Screening for hyperlipidemia (Acute) Family history of colonic polyps (Acute) Weight loss (Acute) Intermittent diarrhea (Acute) Left upper quadrant abdominal pain (Acute) Chest pain (Acute) Adult general medical exam (Acute) Muscle fatigue (Acute) Viral illness (Acute) Laboratory exam ordered as part of routine general medical examination (Acute) Screening for STD (sexually transmitted disease) (Acute) Swollen testicle (Acute) Acid reflux (Acute) Past Medical History Medical History Fx. left wrist Chest pain Family History Family History Mother Substance abuse in family Mental health disorder Brother Mental health disorder Sister Mental health disorder Surgical History Surgical History No pertinent past surgical history Social History Social History Household Members: Significant Other Housing: Apartment Are you a primary professional healthcare representative to a significant other at home: No Do you presently have visiting nurse or other home services: No Alcohol intake: current Comment: on occasion Patient Tobacco Use Status: Never used Tobacco e-Cigarette/Vaping Use: Currently Using Special anthony needs: No service: Yes Current occupational status: employed 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
[2024-12-12 08:07] VITALS: BP 125/83; PULSE 56; RESP 16; TEMP 36.7; O2SAT 100
[2024-12-12] MEDS: Lactated Ringers 1,000 ML 100 ML IVCONT (08:10)
--- NOTE | 2024-12-12 08:30 | MHC.SHP ---
Pre-Procedural Eval Section A - 24 Hr Update-Section A only Date of Service: 12/12/24 Section B - Complete if H&P > 30 days Chief Complaint: Family history of colon polyps, unspecified Present Medications: see Short Stay Collaborative assessment Medical History: No relevant PMH History of Previous Operations: No relevant previous surgery Allergies: Allergies Allergy/AdvReac Type Severity Reaction Status Date / Time No Known Allergies Allergy Verified 11/19/24 08:51 Review of Systems Review of Systems Comment: Ten point ROS negative Exam Exam Comment: Gen appear: No acute distress HEENT: no icterus Chest: No overt resp distress Abd: soft, nontender, nondistended Psych: Stable affect, answering questions appropriately Neuro: A/Ox3 noted to move all extremities spontaneously Ext: no peripheral edema Plan Diagnosis/Plan: Unchanged I have reviewed the history and physical and performed a pertinent physical examination on my patient. No changes have occurred unless specified. Time Spent With Patient Time: Total time managing care of this patient today ____ minutes.
--- NOTE | 2024-12-12 10:11 | HO.ANESPROP2 ---
[facility] Active Problems Active Problems: All Active Problems Urinary frequency (Acute) Erectile dysfunction (Acute) Polyuria (Acute) Multiple nevi (Acute) Gallbladder polyp (Acute) Screening for metabolic disorder (Acute) Screening for hyperlipidemia (Acute) Family history of colonic polyps (Acute) Weight loss (Acute) Intermittent diarrhea (Acute) Left upper quadrant abdominal pain (Acute) Chest pain (Acute) Adult general medical exam (Acute) Muscle fatigue (Acute) Viral illness (Acute) Laboratory exam ordered as part of routine general medical examination (Acute) Screening for STD (sexually transmitted disease) (Acute) Swollen testicle (Acute) Acid reflux (Acute) Past Medical History Medical History Fx. left wrist Chest pain Functional capacity: independent ambulation Family History Family History Mother Substance abuse in family Mental health disorder Brother Mental health disorder Sister Mental health disorder Family history of problems with anesthesia: No Surgical History Surgical History No pertinent past surgical history History of Problems with Anesthesia: No Social History Social History Household Members: Significant Other Housing: Apartment Are you a primary critical care educator to a significant other at home: No Do you presently have visiting nurse or other home services: No Alcohol intake: current Comment: on occasion Patient Tobacco Use Status: Never used Tobacco e-Cigarette/Vaping Use: Currently Using Special anthony needs: No Advance Directives: No Advance Directives Information Provided: Yes service: Yes Current occupational status: employed 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 [employer] Cognitive needs: No Hearing needs: No Vision needs: Yes (Patient wears both contacts and glasses.) Meds Allergies Allergy/AdvReac Type Severity Reaction Status Date / Time No Known Allergies Allergy Verified 11/19/24 08:51 Active Medications: Current Medications Lactated Ringer's (Lr) 1,000 mls @ 100 mls/hr IVCONT .Q10H UMESH Last Admin: 12/12/24 08:10 Dose: 100 mls/hr Exam Height,Weight and Vital Signs: Height 5 ft 6.5 in Weight 56.245 kg Last Vital Signs Temp 98.1 F 12/12/24 08:07 Pulse 56 12/12/24 08:07 Resp 16 12/12/24 08:07 BP 125/83 12/12/24 08:07 Pulse Ox 100 12/12/24 08:07 O2 Del Method Room Air 12/12/24 08:07 Airway Mallampati Class: I TM Dist: >3cm Neck ROM: Full Heart: RRR Lungs: CTA Assessment and Plan Assessment Anesthesia Assessment: Anesthesia Plan Discussed Final Anesthetic Review Family History of Problems with Anesthesia: No History of Problems with Anesthesia: No NPO: Yes ASA Class: I Final Preanesthetic Review: Meds/Allgs Chart Reviewed, Consent Obtained/Reviewed and Anes Risks/Benef Reviewed Patient Risk: Low Procedure Risk: Low Anesthetic Plan Anesthetic Plan: MAC: Disposition: Standard PACU
[2024-12-12 10:19] VITALS: BP 85/46; PULSE 87; RESP 16; TEMP 36.1; O2SAT 97
--- NOTE | 2024-12-12 10:27 | P.OPN-COLO_ITS ---
Colonoscopy Operative Note Operative Note Date of Service: 12/12/24 Narrative: Procedure: Colonoscopy Indication: Family history of colon polyps Endoscopist: Sunshine Dinh MD Anesthesia Provider: Dr Maeve Hernandez Anesthesia type: MAC Instrument: Olympus [id number]-[id number] Consent: Indication, risks vs benefits, and alternatives were discussed with the patient who gave written informed consent to proceed. EKG, pulse, pulse oximetry and blood pressure were monitored throughout the procedure. Please see anesthesia flowsheet. Procedure: The patient was brought to the procedure room and placed in the left lateral decubitus position. IV medications were administered by the anesthesia provider in attendance. A digital rectal exam was performed which was normal. A distal attachment cap was affixed to the tip of the colonoscope which was then inserted through the anus and advanced through the colon to the cecum at 70 cm,and terminal ileum. Appendiceal orifice and ileocecal valve were identified. Mucosa was carefully examined under high definition white light as the instrument was slowly withdrawn in a retrograde panoramic fashion. Retroflexion was performed in rectum. The procedure was not difficult. There were no immediate obvious complications. The quality of the prep was BBPS: 3+2+3 = adequate Withdrawal time 7 minutes. Limitations: No limitations. Findings: Mucosa: Normal to cecum and terminal ileum. Protruding lesions: * Small internal hemorrhoids without stigmata of recent bleeding. Impression: 1. Normal colon mucosa 2. Small internal hemorrhoids Recommendations: - Repeat colonoscopy in 5 years if sibling had an advanced adenoma
[2024-12-12 10:30] VITALS: BP 90/47; PULSE 84; RESP 16; O2SAT 97
[2024-12-12 10:41] VITALS: BP 106/58; PULSE 747; RESP 16; TEMP 36.1; O2SAT 99
== END 2024-12-12 11:06 | disposition home or self-care (01) ==
PROVIDERS: PCP Family Medicine; Visit Provider Internal Medicine
PROC: 0DJD8ZZ Inspection of Lower Intestinal Tract, Via Natural or Artificial Opening Endoscopic (ICD-10-PCS; CPT 45378; principal; 2024-12-12 09:40)
DX: R63.4 Abnormal weight loss (principal); R10.12 Left upper quadrant pain; R19.7 Diarrhea, unspecified; K64.8 Other hemorrhoids; Z83.719 Family history of colon polyps, unspecified
CPT/HCPCS: 45378; J2003; J2704

== ENCOUNTER → 2024-12-12 07:33 | Outpatient (BNV) | payer OTHER, SELFPAY | PROVIDERS: PCP Family Medicine; Visit Provider Internal Medicine | DX: Z12.11 Encounter for screening for malignant neoplasm of colon (principal); Z80.0 Family history of malignant neoplasm of digestive organs; K64.8 Other hemorrhoids | CPT/HCPCS: 45378 ==

== ENCOUNTER 2025-03-31 10:28 | Outpatient (AMB) | payer OTHER, SELFPAY ==
--- NOTE | 2025-03-31 10:33 | A.OFFPC_ITS ---
Vital Signs 03/31/25 10:36 Height 5 ft 6.5 in Weight 136 lb 4 oz BMI 21.7 BP 132/74 Blood Pressure Location Rt brachial Position Sitting Respiration 12 Pulse 107 H Pulse Source Pulse Oximeter Pulse Oximetry (%) 98 Oxygen Delivery Method Room Air Intake Visit Reasons: follow up 07/18 Intake Note: Follow up Assistant Brand Manager Required: No Allergies No Known Allergies Allergy (Verified 03/31/25 10:33) Tobacco use date assessed: 09/24/24 Dental Screening Dental Screen Date: 03/31/25 Did you have a dental visit in the last 12 months?: Yes Did you have a dental problem in the last 6 months where you did not have access to dental care?: No Was dental information given to patient?: Patient has dentist HPI HPI Comments History of Present Illness Details 23 year old male with a past medical his tory of intermittent diarrhea, dyspepsia, presenting for follow up GI: Has history of dyspepsia, intermittent diarrhea. Saw GI-had colonoscopy. family history of polyps. Advised 5 year repeat. Stopped zyns has been able to gain some weight. Still with some dypepsia depends on foods F Saw urology for frequent urination, family history of prostate cancer, ED. Referred to dermatology for multiple nevi ROS see HPI PHYSICAL EXAM: GENERAL: Alert and oriented x 3. NAD EYES: EOMI. Anicteric. HENT: Moist mucous membranes. No scleral icterus. No cervical lymphadenopathy. LUNGS: Clear to auscultation bilaterally. CARDIOVASCULAR: Regular rate and rhythm. No murmur. No JVD. ABDOMEN: Soft, non-tender +bs : Normal penis, testes, no external hemorroids. EXTREMITIES: No edema. Non-tender. SKIN: No rashes or lesions. Warm. NEUROLOGIC: No focal neurological deficits. CN II-XII grossly intact PSYCHIATRIC: Cooperative. Appropriate mood and affect [facility] Medical History Fx. left wrist Chest pain Surgical History H/O colonoscopy No pertinent past surgical history Family History Mother Substance abuse in family Mental health disorder Brother Mental health disorder Sister Mental health disorder Social History Household Members: Significant Other Both parents involved: No Caregiver staying overnight: No Housing: Apartment Are you a primary special needs child caregiver to a significant other at home: No Do you presently have visiting nurse or other home services: No 75 years or older and lives alone: No Alcohol intake: current Comment: on occasion Patient Tobacco Use Status: Never used Tobacco e-Cigarette/Vaping Use: Currently Using Second Hand Smoke Exposure: No Special anthony needs: No service: Yes Current occupational status: employed 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 [employer] Current occupational exposures/hazards: Yes (hearing) Cognitive needs: No Hearing needs: No Vision needs: Yes (Patient wears both contacts and glasses.) Questionnaire Thrive Questionnaire Date Thrive assessed: 09/24/24 I am a: Patient What is your living situation today?: I have a steady place to live Within the past 12 months, did the food you bought not last and you didn't have the money to get more?: Never true Within the past 12 months, did you worry whether your food would run out before you got money to buy more?: Never true Do you have trouble paying for medicines?: No Do you have trouble getting transportation to medical appointments?: No Do you have trouble paying your heating and electricity bill?: No Do you have trouble taking care of your child, family member or friend?: No Do you have trouble with day-to-day activities such as bathing, preparing meals, shopping, managing finances, etc.?: No Are you currently unemployed and looking for a job?: No Are you interested in more education?: No Please select the resources that you would like help with: None Currently or been in a relationship where the following occur: No concerns reported THRIVE Score: 0 AUDIT C Alcohol Use Questionnaire (AUDIT-C) 1. How often do you have a drink containing alcohol?: Monthly or less 2. How many drinks containing alcohol do you have on a typical day when you are drinking?: 1 or 2 3. How often do you have six or more drinks on one occasion?: Never Total Score: 1 ABELARDO-7 AMB Questionnaire ABELARDO-7 Date ABELARDO - 7 assessed: 02/09/24 Source: Developed by Drs. Danilo Esqueda, Macy Dave, Robinson Driver and colleagues, with an educational vin from [email or web address]. Physical exam (Primary Care) Vital Signs: Last Vital Signs Pulse 107 H 03/31/25 10:36 Resp 12 03/31/25 10:36 BP 132/74 03/31/25 10:36 Pulse Ox 98 03/31/25 10:36 Oxygen Delivery Method Room Air 03/31/25 10:36 BMI result Body Mass Index 21.7 Tobacco/Smoking Status: Tobacco use Status Tobacco use date assessed 09/24/24 03/31/25 10:39 Patient Tobacco Use Status Never used Tobacco 03/31/25 10:39 e-Cigarette/Vaping Use Currently Using 03/31/25 10:39 Thrive Assessment: Date of Thrive Assessment Date Thrive assessed 09/24/24 03/31/25 10:39 Currently or been in a relationship where the following occur: No concerns reported Coding Level of Care Code Est Pt Level 4 (44613) Diagnoses Gastroesophageal reflux disease, unspecified whether esophagitis present K21.9 Esophagitis presence: esophagitis presence not specified Intermittent diarrhea R19.7 Assessment & Plan Assessment & Plan (1) Acid reflux: Code(s): K21.9 - Gastro-esophageal reflux disease without esophagitis Category: Medical Qualifiers: Esophagitis presence: esophagitis presence not specified Qualified Code(s): K21.9 - Gastro-esophageal reflux disease without esophagitis (2) Intermittent diarrhea: Code(s): R19.7 - Diarrhea, unspecified Category: Medical Plan Dyspepsia -stable as are loose stools. Can follow up with GI prn. Double pantoprazole if dyspepsia flares. Plans to do h pylori off ppi Follow up with urology prn. Symptoms stable
[2025-03-31 10:36] VITALS: BP 132/74; PULSE 107; RESP 12; O2SAT 98; BMI 21.7
--- OUTSIDE RECORDS SUMMARY | 2025-03-31 13:23 | XMS_ITS ---
Author Name [facility] Organization Unknown History of Medication Use Medication Directions Dispensed Refills Start Date End Date Stat us carbamide peroxide (Debrox) 6.5 % otic solution Administer 5 drops into both ears 2 (two) times a day for 3 days 03/13/2025 active Problems Problem Status Onset Date Problem Type Date of Resolution Source Bilateral impacted cerumen active EncounterDiagnosisAct [facility] Immunizations Vaccine Date Source Lot Number Status Boostrix (Tdap) Prefilled Syringe 03/06/2023 [facility] M4 [id number] completed Encounters Encounter Type Encounter Reason Primary Diagnosis Location Date Ambulatory Ear Complaint Impacted cerumen , bilateral [facility] 03/13/2025 Care Team Organization Name Specialty Phone Email Start Date End Da te [facility] NO PCP Primary Care 03/13
== END 2025-03-31 12:13 | disposition home or self-care (01) ==
LOC: HO.HMCFM 10:29
PROVIDERS: PCP Family Medicine; Visit Provider Internal Medicine
DX: K21.9 Gastro-esophageal reflux disease without esophagitis (principal); R19.7 Diarrhea, unspecified

== ENCOUNTER → 2025-03-31 10:28 | Outpatient (BNVA) | payer OTHER, SELFPAY | PROVIDERS: PCP Family Medicine; Visit Provider Internal Medicine | DX: K21.9 Gastro-esophageal reflux disease without esophagitis (principal); R19.7 Diarrhea, unspecified | CPT/HCPCS: 99212 ==